=== PATIENT | female | born 1955 | race Caucasian/White ===

== ENCOUNTER 2016-12-28 14:16 | Inpatient (IN) | payer OTHER ==
[~2016-12-28] VITALS: Ht 154.9 cm; Wt 63.6 kg
[~2016-12-28 14:16] MED LIST: ALLE10TA5 PO; ALPR.25 PO; CALCTAB80 PO; MULT-65 PO; OMEG5CAP PO; PROT40TA PO; RED600TA PO; ROBA750T3 PO; VITA10002 SL; VITA250T26 PO
[2016-12-28 14:18] VITALS: BP 153/80; PULSE 70; RESP 20; TEMP 97.4; O2SAT 96
[2016-12-28 18:31] VITALS: BP 167/77; PULSE 68; RESP 24; O2SAT 98
[2016-12-28] MEDS ORDERED: NORC5TAB PO (18:40)
[2016-12-28] MEDS ORDERED: ALPR.25 PO (18:40)
[2016-12-28] MEDS ORDERED: CEPH-460 PO (18:40)
[2016-12-28] MEDS ORDERED: CALC500T15 PO (18:40)
[2016-12-28] MEDS ORDERED: ZOFR4TAB PO (18:40)
[2016-12-28] MEDS ORDERED: PANT40TA3 PO (18:40)
[2016-12-28] MEDS ORDERED: MULT1TAB84 PO (18:41)
[2016-12-28] MEDS ORDERED: FISHCAP4 PO (18:41)
[2016-12-28] MEDS ORDERED: LORA10TA PO (18:42)
[2016-12-28] MEDS ORDERED: VITA10002 PO (18:42)
[2016-12-28] MEDS ORDERED: YL V100T PO (18:43)
[2016-12-28] MEDS ORDERED: REDCAP2 PO (18:43)
[2016-12-28] MEDS ORDERED: MELO7.5T4 PO (18:44)
[2016-12-28] MEDS ORDERED: EXCETAB PO (18:48)
--- NOTE | 2016-12-28 18:50 | PD ---
HPI Chief Complaint: GI Complaint Time Seen by Provider: 18:50 Travel History International Travel<30 days: No Contact w/Intl Traveler<30days: No Traveled to known affect area: No History of Present Illness HPI 61-year-old female presents to the emergency Department with complaint of right upper quadrant abdominal pain since Wednesday night. She reports having heartburn and stomach pain with vomiting on Wednesday. Was seen in the ER on Wednesday night and an ultrasound of the gallbladder was positive for gallstones. She followed up with her primary care provider today, Dr. Ford, and was told to come to the emergency department for CT scan of the gallbladder per Dr. Miller. She denies fever, vomiting. Denies chest pain, shortness breath. Denies change in urine or stool. She has had decreased appetite but has been drinking clear liquids throughout the weekend. Allergies to Ultram. History of arthritis, anxiety. No other modifying factors or associated signs and symptoms. PFSH Past Medical History Arthritis: Yes Anxiety: Yes Heart Rhythm Problems: No Cardiac Catheterization: No Cardiovascular Problems: Yes High Cholesterol: Yes Congestive Heart Failure: No Diabetes: Yes (PREDIABETIC) Patient Takes Glucophage: No Diminished Hearing: No ?: Not Menopausal: Yes : 2 Para: 1 Past Surgical History Section: Yes (X 1) Coronary Artery Bypass Graft: No Other Surgery: Yes (carpel tunnel surgery-LEFT) Family History Family Myocardial Infarction: Yes (FATHER AGE 72 ) Social History Alcohol Use: Yes (OCCASSIONAL) Tobacco Use: No Substance Use: No Allergies-Medications (Allergen,Severity, Reaction): Coded Allergies: Codeine (Verified Allergy, Severe, Nausea/Vomiting, 12/28/16) Tramadol (Verified Allergy, Severe, Nausea/Vomiting, 12/28/16) Reported Meds & Prescriptions Reported Meds & Active Scripts Active Reported Excedrin Migraine (Lnzjmak-Dlehhnggomlug-Veznslwq) 250-250-65 Mg Tab 2 Tab PO DAILY PRN Meloxicam 7.5 Mg Tab 7.5 Mg PO BID PRN Vitamin B-12 (Cyanocobalamin) 1,000 Mcg Tab 1,000 Mcg PO DAILY Loratadine 10 Mg Tab 10 Mg PO DAILY Fish Oil + D3 (Fish Oil-Cholecalciferol) 1,200-1,000 Mg-Unit Cap 1 Cap PO DAILY Multivitamin Adults (Multiple Vitamins W/ Minerals) 1 Tab 1 Tab PO DAILY Calcium 500/D (Calcium Carbonate-Vitamin D) 500-200 Mg-Unit Tab 1 Tab PO DAILY Xanax (Alprazolam) 0.25 Mg Tab 0.25 Mg PO DAILY PRN Pantoprazole (Pantoprazole Sodium) 40 Mg Tab 40 Mg PO DAILY Zofran (Ondansetron HCl) 4 Mg Tab 4 Mg PO TID PRN Keflex (Cephalexin) 500 Mg Cap 500 Mg PO QID Lynx (Hydrocodone-Acetaminophen) 5-325 mg Tab 1 Tab PO Q6H PRN Review of Systems Except as stated in HPI: all other systems reviewed are Neg Physical Exam Narrative GENERAL: Well-nourished, well-developed female patient, in no acute distress; afebrile; nontoxic appearing SKIN: Warm and dry. HEAD: Atraumatic. Normocephalic. EYES: Pupils equal and round. No scleral icterus. No injection or drainage. ENT: Mucosa pink and moist. Airway patent. NECK: Trachea midline. CARDIOVASCULAR: Regular rate and rhythm. No murmur appreciated. RESPIRATORY: No accessory muscle use. Clear to auscultation. Breath sounds equal bilaterally. GASTROINTESTINAL: Abdomen soft, tenderness on palpation to right upper quadrant , nondistended. Hepatic and splenic margins not palpable. Bowel sounds are active 4 quadrants. Nonrigid. No rebound tenderness. No guarding. MUSCULOSKELETAL: No obvious deformities. No clubbing. No cyanosis. No edema. NEUROLOGICAL: Awake and alert. Oriented 3. No obvious cranial nerve deficits. Motor grossly within normal limits. Normal speech. PSYCHIATRIC: Appropriate mood and affect; insight and judgment normal. Data Data Last Documented VS Vital Signs Date Time Temp Pulse Resp B/P Pulse Ox O2 Delivery O2 Flow Rate FiO2 12/28/16 18:31 68 24 167/77 98 Room Air 12/28/16 14:18 97.4 Orders Complete Blood Count With Diff (12/28/16 18:55) Comprehensive Metabolic Panel (12/28/16 18:55) Lipase (12/28/16 18:55) Prothrombin Time / Inr (Pt) (12/28/16 18:55) Act Partial Throm Time (Ptt) (12/28/16 18:55) Urinalysis - C+S If Indicated (12/28/16 18:55) Ct Abd/Pel W Iv Contrast(Rout) (12/28/16 18:55) Sodium Chlor 0.9% 1000 Ml Inj (Ns 1000 M (12/28/16 18:55) Sodium Chloride 0.9% Flush (Ns Flush) (12/28/16 19:00) Iohexol 350 Inj (Omnipaque 350 Inj) (12/28/16 20:10) Morphine Inj (Morphine Inj) (12/28/16 20:45) Ondansetron Inj (Zofran Inj) (12/28/16 20:45) Consult General Surgery (12/28/16 ) Labs Laboratory Tests Test 12/28/16 12/28/16 18:50 19:52 White Blood Count 4.7 TH/MM3 Red Blood Count 3.79 MIL/MM3 Hemoglobin 11.4 GM/DL Hematocrit 33.6 % Mean Corpuscular Volume 88.7 FL Mean Corpuscular Hemoglobin 30.0 PG Mean Corpuscular Hemoglobin 33.8 % Concent Red Cell Distribution Width 12.5 % Platelet Count 176 TH/MM3 Mean Platelet Volume 9.8 FL Neutrophils (%) (Auto) 74.6 % Lymphocytes (%) (Auto) 15.1 % Monocytes (%) (Auto) 6.7 % Eosinophils (%) (Auto) 3.0 % Basophils (%) (Auto) 0.6 % Neutrophils # (Auto) 3.5 TH/MM3 Lymphocytes # (Auto) 0.7 TH/MM3 Monocytes # (Auto) 0.3 TH/MM3 Eosinophils # (Auto) 0.1 TH/MM3 Basophils # (Auto) 0.0 TH/MM3 CBC Comment DIFF FINAL Differential Comment Prothrombin Time 10.1 SEC Prothromb Time International 0.9 RATIO Ratio Activated Partial 27.8 SEC Thromboplast Time Sodium Level 142 MEQ/L Potassium Level 3.6 MEQ/L Chloride Level 107 MEQ/L Carbon Dioxide Level 27.5 MEQ/L Anion Gap 8 MEQ/L Blood Urea Nitrogen 11 MG/DL Creatinine 0.66 MG/DL Estimat Glomerular Filtration 91 ML/MIN Rate Random Glucose 88 MG/DL Calcium Level 8.7 MG/DL Total Bilirubin 0.4 MG/DL Aspartate Amino Transf 39 U/L (AST/SGOT) Alanine Aminotransferase 147 U/L (ALT/SGPT) Alkaline Phosphatase 99 U/L Total Protein 6.2 GM/DL Albumin 2.9 GM/DL Lipase 523 U/L Urine Color LIGHT-YELLOW Urine Turbidity CLEAR Urine pH 6.0 Urine Specific [place] 1.009 Urine Protein NEG mg/dL Urine Glucose (UA) NEG mg/dL Urine Ketones 10 mg/dL Urine Occult Blood NEG Urine Nitrite NEG Urine Bilirubin NEG Urine Urobilinogen LESS THAN 2.0 MG/DL Urine Leukocyte Esterase NEG Urine RBC LESS THAN 1 /hpf Urine WBC 1 /hpf Urine Squamous Epithelial <1 /hpf Cells Urine Mucus FEW /lpf Microscopic Urinalysis Comment CULT NOT INDICATED MDM Medical Decision Making Medical Screen Exam Complete: Yes Emergency Medical Condition: Yes Medical Record Reviewed: Yes Differential Diagnosis Cholelithiasis, choledocholithiasis, cholecystitis Narrative Course 61-year-old female sent by primary care provider, Dr. Ford, for CT scan of gallbladder secondary to request from Dr. Miller. Patient placed and cardiopulmonary monitor. IV site obtained. Labs ordered. Urinalysis ordered. Normal saline bolus ordered. Morphine ordered. CT abdomen/pelvis ordered. 1947: CBC unremarkable. Coags unremarkable. BMP unremarkable. AST 39. ALT 147. Lipase 523. 9: CT abdomen/pelvis concludes: Last 24 hours Impressions Abdomen/Pelvis CT 12/28/161854 Signed Impressions: Service Date/Time: Wednesday, December 28, 2016 19:57 - CONCLUSION: 1. CT findings typical of acute cholecystitis. Sludge and stones are seen in the gallbladder lumen. No biliary obstruction. 2. Mass posteriorly within the pelvic cavity that believe is most likely a uterine fibroid. Ultrasound surveillance suggested. Michel Andres MD 2142: Dr. Redding, [facility], report given and patient will be admitted. Consult entered for Dr. Miller, Gen. surgery. Physician Communication Physician Communication Dr. Cantrell, Gen. surgery Dr. Redding, [facility] Diagnosis Primary Impression: Pancreatitis Qualified Code: K85.90 - Acute pancreatitis, unspecified complication status, unspecified pancreatitis type Additional Impression: Acute cholecystitis Admitting Information Admitting Physician Requests: Admit Vida Lai Dec 28, 2016 18:50
[2016-12-28] MEDS ORDERED: SODIUM CHLOR 0.9% 1000 ML INJ 1,000 ML IV SCH (18:55)
[2016-12-28] MEDS ORDERED: SODIUM CHLORIDE 0.9% FLUSH 5 ML FLUSH IVF PRN (19:00)
[2016-12-28 19:20] LABS: AUTOMATED NEUTROPHIL # 3.5 TH/MM3 (1.8-7.7); BASOPHIL % 0.6 % (0.0-2.0); EOSINOPHIL # 0.1 TH/MM3 (0-0.4); HEMATOCRIT 33.6 % (35.0-46.0); HEMO FLAGS DIFF FINAL; LYMPH % 15.1 % (9.0-44.0); LYMPHOCYTE # 0.7 TH/MM3 (1.0-4.8); MEAN CELL VOLUME 88.7 FL (80.0-100.0); MEAN CORPUSCULAR HGB CONC 33.8 % (32.0-36.0); MONO % 6.7 % (0.0-8.0); NEUT % 74.6 % (16.0-70.0); PLATELET COUNT 176 TH/MM3 (150-450); RED BLOOD COUNT 3.79 MIL/MM3 (4.00-5.30); RED CELL DISTRIBUTION WIDTH 12.5 % (11.6-17.2); WHITE BLOOD COUNT 4.7 TH/MM3 (4.0-11.0)
[2016-12-28 19:31] LABS: APTT (PATIENT) 27.8 SEC (24.3-30.1); INTERNATIONAL NORMALIZED RATIO 0.9 RATIO; PROTHROMBIN TIME - PATIENT 10.1 SEC (9.8-11.6)
[2016-12-28 19:41] LABS: ANION GAP 8 MEQ/L (5-15); AST (GOT) 39 U/L (15-37); BICARBONATE 27.5 MEQ/L (21.0-32.0); BLOOD UREA NITROGEN 11 MG/DL (7-18); CHLORIDE 107 MEQ/L (98-107); GLOMERULAR FILTRATION RATE 91 ML/MIN (>89); POTASSIUM 3.6 MEQ/L (3.5-5.1); SODIUM (NA) 142 MEQ/L (136-145)
[2016-12-28 19:45] LABS: ALKALINE PHOSPHATASE 99 U/L (45-117); ALT (GPT) 147 U/L (10-53); TOTAL BILIRUBIN ADULT 0.4 MG/DL (0.2-1.0)
[2016-12-28] MEDS ORDERED: IOHEXOL 350 MG/ML 10 ML VIAL (for RAD DIAG) IV ONE (20:10)
[2016-12-28 20:22] LABS: BLOOD, URINE NEG (NEG); COMMENT (UR) CULT NOT INDICATED; CULTURE IF INDICATED CULT NOT INDICATED; GLUCOSE,URINE NEG (NEG); KETONE, URINE 10 mg/dL (NEG); MUCUS URINE FEW /lpf (OCC); NITRITE,URINE NEG (NEG); SQUAMOUS EPITHELIAL CELL URINE <1 /hpf (0-5); URINE COLOR LIGHT-YELLOW (YELLW/STRAW)
--- NOTE | 2016-12-28 20:35 | RADRPT ---
EXAM DATE/TIME: 12/28/2016 19:57 [place] COMPARISON: No previous studies available for comparison. INDICATIONS : Right lower abdomen pain today. IV CONTRAST: 96 cc Omnipaque 350 (iohexol) IV ORAL CONTRAST: No oral contrast ingested. RADIATION DOSE: 9.96 CTDIvol (mGy) MEDICAL HISTORY : Cardiovascular disease. SURGICAL HISTORY : None. ENCOUNTER: Initial ACUITY: 1 day PAIN SCALE: 7/10 LOCATION: Right lower quadrant TECHNIQUE: Volumetric scanning of the abdomen and pelvis was performed. Using automated exposure control and ad justment of the mA and/or kV according to patient size, radiation dose was kept as low as reasonably achievable to obtain optimal diagnostic quality images. FINDINGS: There is gallbladder wall thickening and pericholecystic fluid. Sludge and small to medium stones are seen in the lumen. No duct stone or ductal dilatation. The liver is within normal limits. Spleen, pancreas, adrenal glands and kidneys are normal. No obstruction or acute inflammatory changes are seen of the gastrointestinal tract. Trace free fluid noted. There is a 4.7 cm solid appearing mass in the posterior aspect of the pelvic cavity which I believe i s a subserosal uterine fibroid. Trace atelectasis seen of both lung bases. Visualized osseous structures are within normal limits. CONCLUSION: 1. CT findings typical of acute cholecystitis. Sludge and stones are seen in the gallbladder lumen. N o biliary obstruction. 2. Mass posteriorly within the pelvic cavity that believe is most likely a uterine fibroid. Ultrasoun d surveillance suggested. Michel Andres MD on December 28, 2016 at 20:30 Board Certified Radiologist. This report was verified electronically.
[2016-12-28] MEDS ORDERED: MORPHINE SULFATE 4 MG/ML INJ IV PUSH ONE (20:45)
[2016-12-28] MEDS ORDERED: ONDANSETRON HCL 4 MG/2 ML VIAL IV PUSH ONE (20:45)
--- NOTE | 2016-12-28 22:08 | HHI.HP ---
HPI Service [facility] Hospitalists Primary Care Physician Bay Ford MD Admission Diagnosis cholecystitis, pancreatitis. Chief Complaint: Abd pain, nausea, sent by surgeon for CT scan Travel History International Travel<30 Days: No Contact w/Intl Traveler <30 Da: No Traveled to Known Affected Are: No History of Present Illness 61-year-old female with know gallstones presents to the emergency Department with complaint of right upper quadrant abdominal pain since Wednesday night. She reports having heartburn and stomach pain with vomiting on Wednesday. Was seen in [facility] ER on Wednesday night and an ultrasound of the gallbladder was positive for gallstones. Lab work was relatively unremarkable at the time. She followed up with her primary care provider today, Dr. Ford, and was told to come to the emergency department for CT scan of the gallbladder after her PCP discussed case with surgeon, Dr. Miller. She denies fever, vomiting over last 3 days, but had some vomiting and low grade fever when symptoms first started last week. Denies chest pain, shortness breath. Denies change in urine or stool. She has had decreased appetite but has been drinking clear liquids throughout the weekend. History of arthritis, anxiety. It is noted that she started Mobic for her osteoA in early Dec, but stopped taking this med when her current GI symptoms started. ER eval revealed mildly elevated lipase and transaminases as well as findings c/ w acute cholecystitis on CT scan. Dr Miller requested admission to medical service with surgery consult. Review of Systems Constitutional: COMPLAINS OF: Fatigue, Change in appetite Eyes: DENIES: Blurred vision, Diplopia, Eye inflammation, Eye pain, Vision loss , Photosensitivity, Double Vision Ears, nose, mouth, throat: DENIES: Tinnitus, Hearing loss, Vertigo, Nasal discharge, Oral lesions, Throat pain, Hoarseness, Ear Pain, Running Nose, Epistaxis, Sinus Pain, Toothache, Odynophagia Respiratory: DENIES: Apneas, Cough, Snoring, Wheezing, Hemoptysis, Sputum production, Shortness of breath Cardiovascular: DENIES: Chest pain, Palpitations, Syncope, Dyspnea on Exertion , PND, Lower Extremity Edema, Orthopnea, Claudication Gastrointestinal: COMPLAINS OF: Abdominal pain, GERD, Nausea, Vomiting Musculoskeletal: COMPLAINS OF: Joint pain Integumentary: DENIES: Abnormal pigmentation, Pruritus, Rash, Nail changes, Breast masses, Breast skin changes, Nipple discharge Immunologic/allergic: DENIES: Eczema, Urticaria Neurologic: DENIES: Abnormal gait, Headache, Localized weakness, Paresthesias, Seizures, Speech Problems, Tremor, Poor Balance Psychiatric: COMPLAINS OF: Anxiety, Depression Past Family Social History Past Medical History Anxiety Cholelithiasis Depression GERD DDD Migraine OsteoA B12 def Past Surgical History c/s Foot surgery Carpal tunnel release Reported Medications Excedrin Migraine (Ucjzdhp-Ozdzixujplxxs-Hgaeirpl) 250-250-65 Mg Tab 2 Tab PO DAILY PRN Meloxicam 7.5 Mg Tab 7.5 Mg PO BID PRN-- none in last week Vitamin B-12 (Cyanocobalamin) 1,000 Mcg Tab 1,000 Mcg PO DAILY Loratadine 10 Mg Tab 10 Mg PO DAILY Fish Oil + D3 (Fish Oil-Cholecalciferol) 1,200-1,000 Mg-Unit Cap 1 Cap PO DAILY Multivitamin Adults (Multiple Vitamins W/ Minerals) 1 Tab 1 Tab PO DAILY Calcium 500/D (Calcium Carbonate-Vitamin D) 500-200 Mg-Unit Tab 1 Tab PO DAILY Xanax (Alprazolam) 0.25 Mg Tab 0.25 Mg PO DAILY PRN Pantoprazole (Pantoprazole Sodium) 40 Mg Tab 40 Mg PO DAILY Zofran (Ondansetron HCl) 4 Mg Tab 4 Mg PO TID PRN Keflex (Cephalexin) 500 Mg Cap 500 Mg PO QID [place] (Hydrocodone-Acetaminophen) 5-325 mg Tab 1 Tab PO Q6H PRN Allergies: Coded Allergies: Codeine (Verified Allergy, Severe, Nausea/Vomiting, 12/28/16) Tramadol (Verified Allergy, Severe, Nausea/Vomiting, 12/28/16) Family History Father - AMI Brother- HTN Social History No tobacco Occasional beer, but no regular EtOH use 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 a/ o. SKIN: No rashes, ecchymoses or lesions. Cool and dry. HEAD: Atraumatic. Normocephalic. No temporal or scalp tenderness. EYES: Pupils equal round and reactive. Extraocular motions intact. No scleral icterus. No injection or drainage. ENT: Nose without bleeding, purulent drainage or septal hematoma. Airway patent. NECK: Trachea midline. No JVD or lymphadenopathy. Supple, nontender, no meningeal signs. CARDIOVASCULAR: Regular rate and rhythm without murmurs, gallops, or rubs. RESPIRATORY: Clear to auscultation. Breath sounds equal bilaterally. No wheezes , rales, or rhonchi. GASTROINTESTINAL: Abdomen soft, nondistended. Mild TTP in RUQ and epigastrium. BS wnl. No hepato-splenomegaly, or palpable masses. +voluntary guarding, no rebound. MUSCULOSKELETAL: Extremities without clubbing, cyanosis, or edema. No joint tenderness, effusion, or edema noted. No calf tenderness. NEUROLOGICAL: Awake and alert. Cranial nerves II through XII intact. Motor and sensory grossly within normal limits. Five out of 5 muscle strength in all muscle groups. Normal speech. Laboratory Laboratory Tests Test 12/28/16 12/28/16 18:50 19:52 White Blood Count 4.7 Red Blood Count 3.79 Hemoglobin 11.4 Hematocrit 33.6 Mean Corpuscular Volume 88.7 Mean Corpuscular Hemoglobin 30.0 Mean Corpuscular Hemoglobin 33.8 Concent Red Cell Distribution Width 12.5 Platelet Count 176 Mean Platelet Volume 9.8 Neutrophils (%) (Auto) 74.6 Lymphocytes (%) (Auto) 15.1 Monocytes (%) (Auto) 6.7 Eosinophils (%) (Auto) 3.0 Basophils (%) (Auto) 0.6 Neutrophils # (Auto) 3.5 Lymphocytes # (Auto) 0.7 Monocytes # (Auto) 0.3 Eosinophils # (Auto) 0.1 Basophils # (Auto) 0.0 CBC Comment DIFF FINAL Differential Comment Prothrombin Time 10.1 Prothromb Time International 0.9 Ratio Activated Partial 27.8 Thromboplast Time Sodium Level 142 Potassium Level 3.6 Chloride Level 107 Carbon Dioxide Level 27.5 Anion Gap 8 Blood Urea Nitrogen 11 Creatinine 0.66 Estimat Glomerular Filtration 91 Rate Random Glucose 88 Calcium Level 8.7 Total Bilirubin 0.4 Aspartate Amino Transf 39 (AST/SGOT) Alanine Aminotransferase 147 (ALT/SGPT) Alkaline Phosphatase 99 Total Protein 6.2 Albumin 2.9 Lipase 523 Urine Color LIGHT-YELLOW Urine Turbidity CLEAR Urine pH 6.0 Urine Specific [place] 1.009 Urine Protein NEG Urine Glucose (UA) NEG Urine Ketones 10 Urine Occult Blood NEG Urine Nitrite NEG Urine Bilirubin NEG Urine Urobilinogen LESS THAN 2.0 Urine Leukocyte Esterase NEG Urine RBC LESS THAN 1 Urine WBC 1 Urine Squamous Epithelial <1 Cells Urine Mucus FEW Microscopic Urinalysis Comment CULT NOT INDICATED Result Diagram: 12/28/16184912/28/161849 Assessment and Plan Problem List: (1) Acute cholecystitis Status: Acute Plan: will control pain. Have GI see pt. NPO except meds. (2) Pancreatitis Status: Acute Plan: likely gallstone induced. Doesn't appear toxic. Follow clinically. (3) GERD (gastroesophageal reflux disease) Status: Chronic Plan: PPi (4) Anxiety Status: Chronic Plan: continue rx. Ativan prn. Code Status full Discussed Condition With Pt, her and ER healthcare provider. Physician Certification 2 Midnight Certification Type: Admission for Inpatient Services Order for Inpatient Services The services are ordered in accordance with Medicare regulations or non- Medicare payer requirements, as applicable. In the case of services not specified as inpatient-only, they are appropriately provided as inpatient services in accordance with the 2-midnight benchmark. Estimated LOS (days): 2 days is the estimated time the patient will need to remain in the hospital, assuming treatment plan goals are met and no additional complications. Post-Hospital Plan: Home Problem Qualifiers (1) Pancreatitis: Qualified Code: K85.90 - Acute pancreatitis, unspecified complication status, unspecified pancreatitis type Denys Redding PhD Dec 28, 2016 22:08
[2016-12-28] MEDS ORDERED: ONDANSETRON ODT 4 MG TAB PO PRN (22:15)
[2016-12-28 22:30] VITALS: BP 139/71; PULSE 70; RESP 14; O2SAT 100
[2016-12-28] MEDS: NS + KCL 20 MEQ INJ 1,000 ML IV SCH (22:30)
[2016-12-29 00:58] VITALS: BP 147/73; PULSE 65; RESP 20; TEMP 98; O2SAT 95
[2016-12-29] MEDS: LORazepam 2 MG/ML VIAL IV PUSH PRN ×2 (01:39→22:01)
[2016-12-29 04:27] VITALS: BP 115/69; PULSE 65; RESP 19; TEMP 97; O2SAT 96
[2016-12-29 06:05] LABS: AUTOMATED NEUTROPHIL # 2.7 TH/MM3 (1.8-7.7); BASOPHIL % 1.1 % (0.0-2.0); EOSINOPHIL # 0.2 TH/MM3 (0-0.4); EOSINOPHIL % 4.5 % (0.0-4.0); HEMATOCRIT 33.5 % (35.0-46.0); LYMPH % 19.2 % (9.0-44.0); LYMPHOCYTE # 0.8 TH/MM3 (1.0-4.8); MEAN CELL VOLUME 88.1 FL (80.0-100.0); MEAN CORPUSCULAR HEMOGLOBIN 30.2 PG (27.0-34.0); MEAN CORPUSCULAR HGB CONC 34.2 % (32.0-36.0); MONO % 7.8 % (0.0-8.0); NEUT % 67.4 % (16.0-70.0); PLATELET COUNT 176 TH/MM3 (150-450); RED CELL DISTRIBUTION WIDTH 12.5 % (11.6-17.2)
[2016-12-29 06:08] LABS: HEMO FLAGS AUTO DIFF
[2016-12-29 06:33] LABS: ALKALINE PHOSPHATASE 199 U/L (45-117); ALT (GPT) 125 U/L (10-53); ANION GAP 9 MEQ/L (5-15); AST (GOT) 35 U/L (15-37); BICARBONATE 27.8 MEQ/L (21.0-32.0); BLOOD UREA NITROGEN 7 MG/DL (7-18); CHLORIDE 107 MEQ/L (98-107); GLOMERULAR FILTRATION RATE 94 ML/MIN (>89); POTASSIUM 3.5 MEQ/L (3.5-5.1); SODIUM (NA) 144 MEQ/L (136-145); TOTAL BILIRUBIN ADULT 0.4 MG/DL (0.2-1.0)
[2016-12-29] MEDS: MORPHINE SULFATE 4 MG/ML INJ IV PRN (06:51)
[2016-12-29 06:59] LABS: PLATELET ESTIMATE SMEAR NORMAL (NORMAL); PLATELET MORPHOLOGY NORMAL (NORMAL); SCAN/DIFF AUTO DIFF CONFIRMED
[2016-12-29 08:00] VITALS: BP 136/77; PULSE 73; RESP 16; TEMP 98.1; O2SAT 94
[2016-12-29] MEDS: PANTOPRAZOLE SOD 40 MG DELAYED RELEASE TAB PO SCH (08:25)
[2016-12-29] MEDS: NS + KCL 20 MEQ INJ 1,000 ML IV SCH (08:25)
[2016-12-29] MEDS: CYANOCOBALAMIN 1,000 MCG TAB PO SCH (08:25)
[2016-12-29] MEDS: LORATADINE 10 MG TAB PO SCH (08:25)
[2016-12-29] MEDS: SODIUM CHLORIDE 0.9% FLUSH 5 ML FLUSH IV SCH ×2 (08:29→22:04)
[2016-12-29] MEDS ORDERED: SODIUM CHLORID 0.9% 500 ML IV SCH (09:30)
[2016-12-29] MEDS: LACTATED RINGER'S 1000 ML IV SCH (09:30)
--- NOTE | 2016-12-29 10:19 | HHI.PR ---
Subjective Remarks Pt reports that her pain is better controlled this morning She has been afebrile Denies any nausea or vomiting. Objective Vitals Vital Signs Date Time Temp Pulse Resp B/P Pulse Ox O2 Delivery O2 Flow Rate FiO2 12/29/16 08:00 98.1 73 16 136/77 94 12/29/16 04:27 97.0 65 19 115/69 96 12/29/16 00:58 98.0 65 20 147/73 95 12/28/16 22:30 70 14 139/71 100 Room Air 12/28/16 18:31 68 24 167/77 98 Room Air 12/28/16 14:18 97.4 70 20 153/80 96 Room Air 12/28/16 12/28/16 12/29/16 15:00 23:00 07:00 Intake Total 0 ml Balance 0 ml Intake Oral 0 ml # Voids 1 # Bowel Movements 0 Result Diagram: 12/29/16 0453 12/29/16 0453 Other Results Laboratory Tests Test 12/28/16 12/28/16 12/29/16 18:50 19:52 04:53 White Blood Count 4.7 TH/MM3 4.0 TH/MM3 Red Blood Count 3.79 MIL/MM3 3.80 MIL/MM3 Hemoglobin 11.4 GM/DL 11.5 GM/DL Hematocrit 33.6 % 33.5 % Mean Corpuscular Volume 88.7 FL 88.1 FL Mean Corpuscular Hemoglobin 30.0 PG 30.2 PG Mean Corpuscular Hemoglobin 33.8 % 34.2 % Concent Red Cell Distribution Width 12.5 % 12.5 % Platelet Count 176 TH/MM3 176 TH/MM3 Mean Platelet Volume 9.8 FL 9.7 FL Neutrophils (%) (Auto) 74.6 % 67.4 % Lymphocytes (%) (Auto) 15.1 % 19.2 % Monocytes (%) (Auto) 6.7 % 7.8 % Eosinophils (%) (Auto) 3.0 % 4.5 % Basophils (%) (Auto) 0.6 % 1.1 % Neutrophils # (Auto) 3.5 TH/MM3 2.7 TH/MM3 Lymphocytes # (Auto) 0.7 TH/MM3 0.8 TH/MM3 Monocytes # (Auto) 0.3 TH/MM3 0.3 TH/MM3 Eosinophils # (Auto) 0.1 TH/MM3 0.2 TH/MM3 Basophils # (Auto) 0.0 TH/MM3 0.0 TH/MM3 CBC Comment DIFF FINAL AUTO DIFF Differential Comment AUTO DIFF CONFIRMED Prothrombin Time 10.1 SEC Prothromb Time International 0.9 RATIO Ratio Activated Partial 27.8 SEC Thromboplast Time Sodium Level 142 MEQ/L 144 MEQ/L Potassium Level 3.6 MEQ/L 3.5 MEQ/L Chloride Level 107 MEQ/L 107 MEQ/L Carbon Dioxide Level 27.5 MEQ/L 27.8 MEQ/L Anion Gap 8 MEQ/L 9 MEQ/L Blood Urea Nitrogen 11 MG/DL 7 MG/DL Creatinine 0.66 MG/DL 0.64 MG/DL Estimat Glomerular Filtration 91 ML/MIN 94 ML/MIN Rate Random Glucose 88 MG/DL 81 MG/DL Calcium Level 8.7 MG/DL 8.4 MG/DL Total Bilirubin 0.4 MG/DL 0.4 MG/DL Aspartate Amino Transf 39 U/L 35 U/L (AST/SGOT) Alanine Aminotransferase 147 U/L 125 U/L (ALT/SGPT) Alkaline Phosphatase 99 U/L 199 U/L Total Protein 6.2 GM/DL 5.6 GM/DL Albumin 2.9 GM/DL 2.6 GM/DL Lipase 523 U/L 706 U/L Urine Color LIGHT-YELLOW Urine Turbidity CLEAR Urine pH 6.0 Urine Specific [place] 1.009 Urine Protein NEG mg/dL Urine Glucose (UA) NEG mg/dL Urine Ketones 10 mg/dL Urine Occult Blood NEG Urine Nitrite NEG Urine Bilirubin NEG Urine Urobilinogen LESS THAN 2.0 MG/DL Urine Leukocyte Esterase NEG Urine RBC LESS THAN 1 /hpf Urine WBC 1 /hpf Urine Squamous Epithelial <1 /hpf Cells Urine Mucus FEW /lpf Microscopic Urinalysis Comment CULT NOT INDICATED Platelet Estimate NORMAL Platelet Morphology Comment NORMAL Red Cell Morphology Comment NORMAL Imaging Last Impressions Abdomen/Pelvis CT 12/28/16 1967 Signed Impressions: Service Date/Time: Wednesday, December 28, 2016 19:57 - CONCLUSION: 1. CT findings typical of acute cholecystitis. Sludge and stones are seen in the gallbladder lumen. No biliary obstruction. 2. Mass posteriorly within the pelvic cavity that believe is most likely a uterine fibroid. Ultrasound surveillance suggested. Michel Andres MD Objective Remarks General: NAD, AAOx3 Chest: CTA Cardiac: Regular Abd: +BS, soft nondistended, RUQ tenderness Ext: No edema A/P Problem List: (1) Acute cholecystitis Status: Acute Plan: - Pt admitted with RUQ abd pain, nausea and vomiting that has been going on intermittently for the last 6 days. - CT Abd/pelvis in the ER noted findings typical of acute cholecystitis, sludge and stones are seen in the gallbladder lumen, but no biliary obstruction. Mass posteriorly within the pelvic cavity that believe is most likely a uterine fibroid. Ultrasound surveillance suggested. - Pain control PRN - Pt is NPO except meds. - Await General Surgery consultation - IVF - Pt has been afebrile, WBC count is WNL. (2) Elevated lipase Status: Acute Plan: - Pt with noted mildly elevated lipase at admission - No evidence of pancreatitis on imaging - May be secondary to above in relation to her gallbladder sludge and stone. No evidence of obstruction. (3) GERD (gastroesophageal reflux disease) Status: Chronic Plan: - PPI (4) Anxiety Status: Chronic Plan: - Continue rx. - Ativan prn. Assessment and Plan Patient examined. Assessment and plan formulated with Tosha Valencia PA-C. I agree with the above. acute cholecystitis. stones/sludge in gb. mild lipase elevation. gusman's sign on exam. npo. ivf. abx. await gen surg. Tosha Valencia Dec 29, 2016 10:18 Micah Lutz MD Dec 29, 2016 11:00
[2016-12-29] MEDS: metroNIDAZOLE 500 MG INJ 100 ML IV SCH ×2 (11:23→22:01)
[2016-12-29] MEDS: LEVOFLOXACIN 500 MG PREMIX INJ 100 ML IV SCH (11:23)
[2016-12-29 12:00] VITALS: BP 151/79; PULSE 71; RESP 16; TEMP 99; O2SAT 98
[2016-12-29 15:50] VITALS: BP 160/80; PULSE 79; RESP 18; TEMP 98; O2SAT 95
--- NOTE | 2016-12-29 17:06 | EKG ---
Date Performed: 12/29/2016 Time Performed: 10:30:48 PTAGE: 61 years EKG: Sinus rhythm BORDERLINE LEFT AXIS DEVIATION Since previous tracing, no significant change noted BORDERLINE ECG PREVIOUS TRACING : 09/16/2015 09.29 DOCTOR: Chris Morrison Interpretating Date/Time 12/29/2016 17:05:36
[2016-12-29] MEDS: ACETAMINOPHEN 325 MG TAB PO PRN (17:42)
--- NOTE | 2016-12-29 18:57 | MB ---
cc: NAOMI MARSH DATE OF CONSULTATION: 12/29/2016 DATE OF : 1955 REASON FOR CONSULTATION: Abdominal pain. HISTORY This is a 61-year-old female who presented to the emergency room with abdominal pain. The patient states the pain began six days prior, was located in the upper abdomen, associated with nausea and vomiting. Two days after initial presentation, the pain became severe. As a result she presented to the emergency room where ultrasound was performed. The patient was diagnosed with cholecystitis, placed on oral antibiotics, and sent home with instructions to follow up with her primary doctor. She tolerated her clear liquid diet over the weekend. On evaluation by her primary doctor she was noted to have tenderness throughout her lower abdomen as well as her right upper quadrant. As a result her physician contacted me and requested that the patient be seen in the emergency room for CT scan of her abdomen and pelvis. The patient states the pain is better now, though still present. Nausea is better. She did have fever the last three days prior. The patient denies chest pain, shortness of breath. No change in bowel habits. PAST MEDICAL HISTORY: Significant for osteoarthritis. Anxiety. PAST SURGICAL HISTORY: Significant for . Carpal tunnel release. MEDICATIONS AT HOME: 1. Keflex. 2. Flagyl. 3. Meloxicam. 4. Xanax. ALLERGIES: TRAMADOL causes upset stomach. SOCIAL HISTORY: She does not smoke. She drinks alcohol occasionally. FAMILY HISTORY: Noncontributory. REVIEW OF SYSTEMS: Significant for above. All other 10 point review is negative. PHYSICAL EXAMINATION: The patient is laying in bed in no acute distress. HEENT: Pupils are equal and reactive. Sclera icteric. Trachea midline. Respiratory rate clear. Cardiovascular: Regular. Gastrointestinal: Soft, nondistended. Mild tenderness in the lower abdomen. No peritoneal signs. Musculoskeletal: No deformities. Neurological: Nonfocal. LABORATORY DATA: Lipase 523, on 12/28 and today it has increased to 706. Bilirubin 0.4. IMAGING STUDIES: CT scan revealed inflammation around the gallbladder with sludge and stone within the gallbladder. ASSESSMENT: This is a patient with cholecystitis, cholelithiasis, and pancreatitis. The patient has been made n.p.o. Will continue antibiotics, Levaquin and Flagyl. As the patient's lipase started trending down, will start diet of full liquid, and as symptoms improve, will plan on removal of gallbladder as an outpatient in about six weeks. Will follow. MD MELINDA Alexandra/DEBRA /6:16 PM /6:49 PM
[2016-12-29 19:37] VITALS: BP 158/75; PULSE 74; RESP 18; TEMP 99.1; O2SAT 95
[2016-12-30 00:17] VITALS: BP 145/71; PULSE 72; RESP 18; TEMP 97.3; O2SAT 96
[2016-12-30] MEDS: MORPHINE SULFATE 4 MG/ML INJ IV PRN (02:43)
[2016-12-30 04:17] VITALS: BP 167/78; PULSE 71; RESP 19; TEMP 97.5; O2SAT 95
[2016-12-30] MEDS: metroNIDAZOLE 500 MG INJ 100 ML IV SCH ×3 (06:07→20:56)
[2016-12-30] MEDS: ACETAMINOPHEN 325 MG TAB PO PRN ×2 (06:12→11:40)
[2016-12-30] MEDS: cloNIDine HCL 0.1 MG TAB PO PRN (06:12)
[2016-12-30 07:17] LABS: INDIRECT BILIRUBIN 0.4 MG/DL (0.0-0.8); TOTAL BILIRUBIN ADULT 0.5 MG/DL (0.2-1.0)
[2016-12-30 07:53] VITALS: BP 141/64; PULSE 74; RESP 18; TEMP 97.1; O2SAT 96
[2016-12-30] MEDS: SODIUM CHLORIDE 0.9% FLUSH 5 ML FLUSH IV SCH ×2 (09:00→20:56)
[2016-12-30] MEDS: LACTATED RINGER'S 1000 ML IV SCH (09:30)
--- NOTE | 2016-12-30 09:55 | HHI.PR ---
Subjective Remarks hungry. pain better. Objective Vitals heart reg lung cta abd s/nt/nabs/gusman better ext no edema Vital Signs Date Time Temp Pulse Resp B/P Pulse Ox O2 Delivery O2 Flow Rate FiO2 12/30/16 07:53 97.1 74 18 141/64 96 12/30/16 04:17 97.5 71 19 167/78 95 12/30/16 00:17 97.3 72 18 145/71 96 12/29/16 19:37 99.1 74 18 158/75 95 12/29/16 18:42 18 12/29/16 15:50 98.0 79 18 160/80 95 12/29/16 12:00 99.0 71 16 151/79 98 12/29/16 12/29/16 12/30/16 15:00 23:00 07:00 Intake Total 875 ml 411 ml Balance 875 ml 411 ml Intake Oral 0 ml 0 ml IV Total 875 ml 411 ml # Voids 5 4 1 # Bowel Movements 0 0 0 Result Diagram: 12/29/16 0453 12/29/16 0453 Imaging Last Impressions Abdomen/Pelvis CT 12/28/16 2513 Signed Impressions: Service Date/Time: Wednesday, December 28, 2016 19:57 - CONCLUSION: 1. CT findings typical of acute cholecystitis. Sludge and stones are seen in the gallbladder lumen. No biliary obstruction. 2. Mass posteriorly within the pelvic cavity that believe is most likely a uterine fibroid. Ultrasound surveillance suggested. Michel Andres MD A/P Problem List: (1) Acute cholecystitis Status: Acute Plan: acute cholecystitis and mild pancreatitis. gallstone/slugde noted discussed with gen surg monitor lft/lipase cont ivf. iv abx. advance diet slowly if lft not trending down might need further eval of cbd to exclude sludge. (2) Elevated lipase Status: Acute Plan: see above (3) GERD (gastroesophageal reflux disease) Status: Chronic Plan: - PPI (4) Anxiety Status: Chronic Plan: - Continue rx. - Ativan prn. Micah Lutz MD Dec 30, 2016 09:55
[2016-12-30] MEDS ORDERED: PNEUMOCOCCAL POLYVALENT INJ 25 MCG/0.5 ML SYR IM ONE (10:00)
[2016-12-30] MEDS: LORATADINE 10 MG TAB PO SCH (10:09)
[2016-12-30] MEDS: CYANOCOBALAMIN 1,000 MCG TAB PO SCH (10:09)
[2016-12-30] MEDS: PANTOPRAZOLE SOD 40 MG DELAYED RELEASE TAB PO SCH (10:09)
[2016-12-30] MEDS: LEVOFLOXACIN 500 MG PREMIX INJ 100 ML IV SCH (11:39)
[2016-12-30 12:00] VITALS: BP 139/71; PULSE 73; RESP 19; TEMP 97.5; O2SAT 95
[2016-12-30 15:48] VITALS: BP 143/70; PULSE 75; RESP 18; TEMP 98.8
--- NOTE | 2016-12-30 16:52 | RADRPT ---
EXAM DATE/TIME: 12/30/2016 15:57 [facility] COMPARISON: CT ABDOMEN & PELVIS W CONTRAST, December 28, 2016, 19:57. INDICATIONS : Obstruction. MEDICAL HISTORY : Hypercholesterolemia. Cardiovascular disease Gastroesophageal reflux disease. SURGICAL HISTORY : section. Carpal tunnel syndrome. ENCOUNTER: Subsequent ACUITY: 3 day PAIN SCORE: 3/10 LOCATION: Abdomen. TECHNIQUE: Multiplanar, multisequence magnetic resonance imaging of the abdomen was performed. High-resolution 3D dataset was utilized to reconstruct maximum-intensity projection (MIP) images. FINDINGS: INTRAHEPATIC BILE DUCTS: Within normal limits. No significant anatomical variant is present. EXTRAHEPATIC BILE DUCTS: The common bile duct measures 7 mm. A 4 mm filling defect is seen within the inferior common bile sergio t best appreciated on the T2 source images. The stone is just short of the ampulla. GALLBLADDER: Multiple stones are seen layering within the gallbladder. There is gallbladder wall thickening and a small amount of pericholecystic fluid. LIVER: Normal size and signal intensity. No concerning liver lesion is identified on this non-contrast exam. PANCREAS: The main pancreatic duct is normal in size. There is no significant anatomical variant. Signal inte nsity is within normal limits. No mass is visualized on this non-contrast exam. OTHER: The remaining visualized structures demonstrate no acute abnormality on this non-contrast exam. CONCLUSION: 1. 4 mm common bile duct stone with mild prominence of the common bile duct measuring 7 mm in diamete r. This is just out of the range of normal in terms of size for a patient of this age. 2. Acute cholecystitis. Sam Esparza Jr., MD on December 30, 2016 at 16:36 Board Certified Radiologist. This report was verified electronically.
[2016-12-30 19:52] VITALS: BP 143/67; PULSE 73; RESP 16; TEMP 97.6; O2SAT 95
[2016-12-30] MEDS: LORazepam 2 MG/ML VIAL IV PUSH PRN (22:17)
[2016-12-31 00:26] VITALS: BP 114/58; PULSE 84; RESP 19; TEMP 97.6; O2SAT 95
[2016-12-31] MEDS: metroNIDAZOLE 500 MG INJ 100 ML IV SCH ×3 (03:59→21:16)
[2016-12-31 04:21] VITALS: BP 163/65; PULSE 73; RESP 18; TEMP 97.4; O2SAT 96
[2016-12-31 07:27] LABS: INDIRECT BILIRUBIN 0.3 MG/DL (0.0-0.8); TOTAL BILIRUBIN ADULT 0.4 MG/DL (0.2-1.0)
[2016-12-31 08:00] VITALS: BP 175/72; PULSE 77; RESP 18; TEMP 98; O2SAT 95
[2016-12-31] MEDS: CYANOCOBALAMIN 1,000 MCG TAB PO SCH (09:14)
[2016-12-31] MEDS: LORATADINE 10 MG TAB PO SCH (09:14)
[2016-12-31] MEDS: PANTOPRAZOLE SOD 40 MG DELAYED RELEASE TAB PO SCH (09:14)
[2016-12-31] MEDS: SODIUM CHLORIDE 0.9% FLUSH 5 ML FLUSH IV SCH ×2 (09:16→21:17)
[2016-12-31] MEDS: MORPHINE SULFATE 4 MG/ML INJ IV PRN ×3 (09:17→19:43)
[2016-12-31] MEDS: cloNIDine HCL 0.1 MG TAB PO PRN (09:18)
[2016-12-31] MEDS: LACTATED RINGER'S 1000 ML IV SCH (09:30)
--- NOTE | 2016-12-31 11:08 | HHI.PR ---
Subjective Remarks feels better. Objective Vitals heart reg lung cta abd s/nt ext no edema Vital Signs Date Time Temp Pulse Resp B/P Pulse Ox O2 Delivery O2 Flow Rate FiO2 12/31/16 08:00 98.0 77 18 175/72 95 12/31/16 07:19 Room Air 12/31/16 04:21 97.4 73 18 163/65 96 12/31/16 00:26 97.6 84 19 114/58 95 12/30/16 19:52 97.6 73 16 143/67 95 12/30/16 15:48 98.8 75 18 143/70 12/30/16 12:00 97.5 73 19 139/71 95 12/30/16 12/30/16 12/31/16 15:00 23:00 07:00 Intake Total 1654 ml 346 ml 695 ml Balance 1654 ml 346 ml 695 ml Intake Oral 720 ml 240 ml 480 ml IV Total 934 ml 106 ml 215 ml # Voids 6 4 2 # Bowel Movements 0 0 1 Result Diagram: 12/29/16 0453 12/29/16 0453 Imaging Last Impressions Abdomen/Pelvis CT 12/28/16 4495 Signed Impressions: Service Date/Time: Wednesday, December 28, 2016 19:57 - CONCLUSION: 1. CT findings typical of acute cholecystitis. Sludge and stones are seen in the gallbladder lumen. No biliary obstruction. 2. Mass posteriorly within the pelvic cavity that believe is most likely a uterine fibroid. Ultrasound surveillance suggested. Michel Andres MD A/P Problem List: (1) Acute cholecystitis Status: Acute Plan: acute cholecystitis and mild pancreatitis. gallstone/slugde noted choledocholithiasis discussed with gen surg. no lap maxim until 6 weeks cont iv abx on clears lft mild trend down today. lipase elevated 4mm stone in cbc...GI consulted to decide if needs ercp. long discussion with pt/. (2) Elevated lipase Status: Acute Plan: see above (3) GERD (gastroesophageal reflux disease) Status: Chronic Plan: - PPI (4) Anxiety Status: Chronic Plan: - Continue rx. - Ativan prn. Micah Lutz MD Dec 31, 2016 11:08
[2016-12-31 12:00] VITALS: BP 102/58; PULSE 64; RESP 18; TEMP 96.9; O2SAT 95
[2016-12-31] MEDS: LEVOFLOXACIN 500 MG PREMIX INJ 100 ML IV SCH (12:08)
--- NOTE | 2016-12-31 12:20 | PD.CONS ---
HPI History of Present Illness This is a 61 year old female patient who came to the emergency room for evaluation of abdominal pain. She reports that her symptoms began last Wednesday and she describes this pain as a severe ache in her epigastric area that radiates to the left upper quadrant and right upper quadrant and around to her back. She has associated nausea, vomiting, and bloating. The pain awoke her around 3 AM Wednesday. She reports that she went to work anyway but felt ill all day. She reports that she continued to feel bad on and Wednesday. Her symptoms are aggravated by po intake and therefore she has not been eating much. Wednesday she reports that the pain became suddenly worse and she also had a low-grade fever and chills with the nausea and vomiting. She went to the emergency room on patient site and was told that she had gallstones and instructed to follow up with her primary care physician. She reports that she then went to see her primary care doctor on Wednesday and he referred her to the ER for further evaluation.A Bdomen/Pelvis CT (12/28/16) revealed 1. CT findings typical of acute cholecystitis. Sludge and stones are seen in the gallbladder lumen. No biliary obstruction. 2. Mass posteriorly within the pelvic cavity that believe is most likely a uterine fibroid. Ultrasound surveillance suggested. Cholangiopancreatography MRI (12/30/16)----> 1. 4 mm common bile duct stone with mild prominence of the common bile duct measuring 7 mm in diameter. This is just out of the range of normal in terms of size for a patient of this age. 2. Acute cholecystitis. Her WBC is normal. Her LFTs are trending down. However her lipase has increased and is currently 1325. She has been afebrile since 12/30/16. COUNT INCLUDES THE [facility] Past Medical History Anxiety/depression Cholelithiasis GERD DDD Migraines Osteoarthritis B12 deficiency Past Surgical History Foot surgery Carpal tunnel release Coded Allergies: Codeine (Verified Allergy, Severe, Nausea/Vomiting, 12/28/16) Tramadol (Verified Allergy, Severe, Nausea/Vomiting, 12/28/16) Medications Allergies Coded Allergies Type Severity Reaction Last Updated Verified Codeine Allergy Severe Nausea/Vomiting 12/28/16 Yes Tramadol Allergy Severe Nausea/Vomiting 12/28/16 Yes Active Scripts Medications Dose Route/Sig Days Date Category Excedrin Migraine (Bgkiztq-Qjftjnfsweqfq-Zpabrkaf) 250-250-65 Mg Tab 2 Tab PO DAILY PRN 12/28/16 Reported Meloxicam 7.5 Mg Tab 7.5 Mg PO BID PRN 12/28/16 Reported Vitamin B-12 (Cyanocobalamin) 1,000 Mcg Tab 1,000 Mcg PO DAILY 12/28/16 Reported Loratadine 10 Mg Tab 10 Mg PO DAILY 12/28/16 Reported Fish Oil + D3 (Fish Oil-Cholecalciferol) 1,200-1,000 Mg-Unit Cap 1 Cap PO DAILY 12/28/16 Reported Multivitamin Adults (Multiple Vitamins W/ Minerals) 1 Tab 1 Tab PO DAILY 12/28/16 Reported Calcium 500/D (Calcium Carbonate-Vitamin D) 500-200 Mg-Unit Tab 1 Tab PO DAILY 12/28/16 Reported Xanax (Alprazolam) 0.25 Mg Tab 0.25 Mg PO DAILY PRN 12/28/16 Reported Pantoprazole (Pantoprazole Sodium) 40 Mg Tab 40 Mg PO DAILY 12/28/16 Reported Zofran (Ondansetron HCl) 4 Mg Tab 4 Mg PO TID PRN 12/28/16 Reported Keflex (Cephalexin) 500 Mg Cap 500 Mg PO QID 12/28/16 Reported [place] (Hydrocodone-Acetaminophen) 5-325 mg Tab 1 Tab PO Q6H PRN 12/28/16 Reported Family History Sister from pancreatic cancer reports that her mother had GI issues. Father from a [place] Social History No tobacco Occasional alcohol Review of Systems Constitutional: COMPLAINS OF: Fever, Weight loss (small amount, planned weight loss), Chills, Change in appetite Respiratory: DENIES: Cough, Shortness of breath Cardiovascular: DENIES: Chest pain Gastrointestinal: COMPLAINS OF: Abdominal pain, Nausea, Vomiting, Heartburn, DENIES: Black stools, Bloody stools, Constipation, Diarrhea, Hematemesis Musculoskeletal: COMPLAINS OF: Joint pain Integumentary: DENIES: Abnormal pigmentation Neurologic: DENIES: Headache Psychiatric: DENIES: Confusion GI Exam Vitals I&O Vital Signs Date Time Temp Pulse Resp B/P Pulse Ox O2 Delivery O2 Flow Rate FiO2 12/31/16 08:00 98.0 77 18 175/72 95 12/31/16 07:19 Room Air 12/31/16 04:21 97.4 73 18 163/65 96 12/31/16 00:26 97.6 84 19 114/58 95 12/30/16 19:52 97.6 73 16 143/67 95 12/30/16 15:48 98.8 75 18 143/70 I/O 12/30/16 12/30/16 12/30/16 12/31/16 12/31/16 12/31/16 07:00 15:00 23:00 07:00 15:00 23:00 Intake Total 411 ml 1654 ml 346 ml 695 ml Balance 411 ml 1654 ml 346 ml 695 ml Intake Oral 0 ml 720 ml 240 ml 480 ml IV Total 411 ml 934 ml 106 ml 215 ml # Voids 1 6 4 2 # Bowel Movements 0 0 0 1 Imaging Last Impressions Cholangiopancreatography MRI 12/30/16 0000 Signed Impressions: Service Date/Time: Friday, December 30, 2016 15:57 - CONCLUSION: 1. 4 mm common bile duct stone with mild prominence of the common bile duct measuring 7 mm in diameter. This is just out of the range of normal in terms of size for a patient of this age. 2. Acute cholecystitis. Sam Esparza Jr., MD Abdomen/Pelvis CT 12/28/16 1855 Signed Impressions: Service Date/Time: Wednesday, December 28, 2016 19:57 - CONCLUSION: 1. CT findings typical of acute cholecystitis. Sludge and stones are seen in the gallbladder lumen. No biliary obstruction. 2. Mass posteriorly within the pelvic cavity that believe is most likely a uterine fibroid. Ultrasound surveillance suggested. Michel Andres MD Laboratory Test 12/31/16 06:27 Total Bilirubin 0.4 MG/DL Direct Bilirubin 0.1 MG/DL Indirect Bilirubin 0.3 MG/DL Aspartate Amino Transf 13 U/L (AST/SGOT) Alanine Aminotransferase 81 U/L (ALT/SGPT) Alkaline Phosphatase 243 U/L Total Protein 6.2 GM/DL Albumin 3.0 GM/DL Lipase 1325 U/L Physical Examination HEENT: Normocephalic; atraumatic; no jaundice. CHEST: CTA. CARDIAC: RRR. ABDOMEN: Soft, nondistended, mild upper abdominal tenderness; no hepatosplenomegaly; bowel sounds are present in all four quadrants. EXTREMITIES: No clubbing, cyanosis, or edema. SKIN: Normal; no rash; no jaundice. PRIMING POWDER PREMIX BLENDER: No focal deficits; alert and oriented times three. Assessment and Plan Plan ASSESSMENT: - Gallstone pancreatitis. Abdomen/Pelvis CT (12/28/16)----> 1. CT findings typical of acute cholecystitis. Sludge and stones are seen in the gallbladder lumen. No biliary obstruction. 2. Mass posteriorly within the pelvic cavity that believe is most likely a uterine fibroid. Ultrasound surveillance suggested. MRCP (12/30/16)---> 1. 4 mm common bile duct stone with mild prominence of the common bile duct measuring 7 mm in diameter. This is just out of the range of normal in terms of size for a patient of this age. 2. Acute cholecystitis. Lipase 1325. Clear liquids. LFTs trending down. - Choledocholithiasis. Pt with 4mm cbd stone. Will plan for ERCP today. - Cholecystitis. GS following, plan for outpatient cholecystectomy. - Fever/Chills. Improved. Afebrile since 12/30. Dejuan Louis. PLAN: - Plan for ERCP with possible sphincterotomy, stent placement - Obtain consents - NPO - Cont. Abx. - LFT, Lipase in am - GS following - Supportive care - Further recommendations to follow based on results of above - PT seen and examined by Dr. Warner and myself and this note is written on his behalf Catherine Gutierrez Dec 31, 2016 12:20
[2016-12-31] MEDS ORDERED: IOHEXOL 350 MG/ML 100 ML BTL (for RAD DIAG) OTHER ONE (16:17)
--- NOTE | 2016-12-31 17:14 | RADRPT ---
EXAM DATE/TIME: 12/31/2016 16:33 [facility] COMPARISON: No previous studies available for comparison. FINDINGS: An ERCP was performed by the ordering physician. The images demonstrate a contrast in the extrahepatic biliary system. CONCLUSION: ERCP as above. Sam Estevez MD on December 31, 2016 at 17:12 Board Certified Radiologist. This report was verified electronically.
[2016-12-31] MEDS ORDERED: DO NOT ADM ANY ANTICOAGULANT DRUGS XX PRN (17:30)
--- NOTE | 2016-12-31 17:32 | MR ---
cc: KENYA COVARRUBIAS M.D., WESLEY M.D. DATE: 12/31/2016 PROCEDURE ERCP with sphincterotomy, stone removal by balloon and biopsy of the antrum. INDICATIONS 61-year-old lady with pancreatitis. MRCP showed common bile duct stone. PROCEDURE After informing the patient of procedure and complication consent was signed. The patient was placed on her left lateral decubitus adequate sedation was achieved by propofol scope was placed in the mouth advanced under video guidance to the second portion of the duodenum. The ampulla was identified and cannulation was achieved without difficulty common bile duct was opacified with dye was questionable filling defect in the distal common bile duct. Sphincterotomy was performed. Sweeping the duct with 11.5 mm balloon revealed one small stone. Next, the end of case occluded cholangiogram was negative for any filling defect. Next pancreatic duct was not seen. Next the scope drawn back to the stomach. Biopsy was done from antrum because of gastritis and the scope drawn back without immediate complication. FINDINGS 1. Esophagus limited exam normal 2. stomach, mild gastritis. Biopsy was done from the antrum. 3. Ampulla normal. 4. Common bile duct stone removed by balloon sweep. RECOMMENDATIONS 1. N.p.o. 2. The patient tolerated procedure well. 3. The liver function tests in the morning. 4. Await biopsy result. MD AINSLEY Tobin/thad /4:49 PM /5:14 PM
[2016-12-31 18:20] VITALS: BP 134/62; PULSE 56; RESP 9; TEMP 95.9; O2SAT 98
[2016-12-31 20:05] VITALS: BP 131/69; PULSE 68; RESP 15; TEMP 96.8; O2SAT 94
[2016-12-31] MEDS: LORazepam 2 MG/ML VIAL IV PUSH PRN (21:21)
[2016-12-31] MEDS ORDERED: PROPOFOL 200 MG/20 ML AMP IV ONE (22:24)
[2017-01-01] VITALS: BP 107/71; PULSE 75; RESP 16; TEMP 96.8; O2SAT 94
[2017-01-01] MEDS: metroNIDAZOLE 500 MG INJ 100 ML IV SCH ×3 (05:44→20:24)
[2017-01-01 07:02] LABS: INDIRECT BILIRUBIN 0.2 MG/DL (0.0-0.8); TOTAL BILIRUBIN ADULT 0.3 MG/DL (0.2-1.0)
[2017-01-01 08:00] VITALS: BP 126/74; PULSE 80; RESP 16; TEMP 97.9; O2SAT 95
[2017-01-01] MEDS: PANTOPRAZOLE SOD 40 MG DELAYED RELEASE TAB PO SCH (09:19)
[2017-01-01] MEDS: LORATADINE 10 MG TAB PO SCH (09:19)
[2017-01-01] MEDS: CYANOCOBALAMIN 1,000 MCG TAB PO SCH (09:19)
[2017-01-01] MEDS: MORPHINE SULFATE 4 MG/ML INJ IV PRN ×2 (09:21→16:08)
[2017-01-01] MEDS: SODIUM CHLORIDE 0.9% FLUSH 5 ML FLUSH IV SCH ×2 (09:27→20:24)
--- NOTE | 2017-01-01 11:13 | HHI.PR ---
Subjective Remarks Pt reports that last night she had increased pain in the abdomen but that has improved this morning. She has some mild discomfort but overall is feeling better Objective Vitals Vital Signs Date Time Temp Pulse Resp B/P Pulse Ox O2 Delivery O2 Flow Rate FiO2 01/01/17 08:00 97.9 80 16 126/74 95 01/01/17 00:00 96.8 75 16 107/71 94 12/31/16 20:05 96.8 68 15 131/69 94 12/31/16 18:20 95.9 56 9 134/62 98 12/31/16 18:02 Room Air 1.00 12/31/16 17:30 59 16 128/80 98 Nasal Cannula 2 12/31/16 17:17 63 16 128/80 7 Nasal Cannula 2 12/31/16 17:15 75 16 128/80 90 Room Air 12/31/16 16:56 98.2 73 16 138/81 95 Nasal Cannula 2 12/31/16 12:00 96.9 64 18 102/58 95 12/31/16 12/31/16 01/01/17 15:00 23:00 07:00 Intake Total 800 ml 700 ml Balance 800 ml 700 ml Intake Oral 600 ml IV Total 200 ml 200 ml Other 500 ml # Voids 4 2 2 # Bowel Movements 1 0 Result Diagram: 12/29/16 0453 12/29/16 0453 Other Results Laboratory Tests Test 12/31/16 01/01/17 06:27 05:50 Total Bilirubin 0.4 MG/DL 0.3 MG/DL Direct Bilirubin 0.1 MG/DL 0.1 MG/DL Indirect Bilirubin 0.3 MG/DL 0.2 MG/DL Aspartate Amino Transf 13 U/L 31 U/L (AST/SGOT) Alanine Aminotransferase 81 U/L 74 U/L (ALT/SGPT) Alkaline Phosphatase 243 U/L 241 U/L Total Protein 6.2 GM/DL 6.1 GM/DL Albumin 3.0 GM/DL 2.9 GM/DL Lipase 1325 U/L 1209 U/L Imaging Last Impressions GI Procedure 12/31/16 0000 Signed Impressions: Service Date/Time: December 16:33 - CONCLUSION: ERCP as above. Sam Estevez MD Cholangiopancreatography MRI 12/30/16 0000 Signed Impressions: Service Date/Time: Friday, December 30, 2016 15:57 - CONCLUSION: 1. 4 mm common bile duct stone with mild prominence of the common bile duct measuring 7 mm in diameter. This is just out of the range of normal in terms of size for a patient of this age. 2. Acute cholecystitis. Sam Esparza Jr., MD Abdomen/Pelvis CT 12/28/161854 Signed Impressions: Service Date/Time: Wednesday, December 28, 2016 19:57 - CONCLUSION: 1. CT findings typical of acute cholecystitis. Sludge and stones are seen in the gallbladder lumen. No biliary obstruction. 2. Mass posteriorly within the pelvic cavity that believe is most likely a uterine fibroid. Ultrasound surveillance suggested. Michel Andres MD Last Impressions Abdomen/Pelvis CT 12/28/161854 Signed Impressions: Service Date/Time: Wednesday, December 28, 2016 19:57 - CONCLUSION: 1. CT findings typical of acute cholecystitis. Sludge and stones are seen in the gallbladder lumen. No biliary obstruction. 2. Mass posteriorly within the pelvic cavity that believe is most likely a uterine fibroid. Ultrasound surveillance suggested. Michel Andres MD Objective Remarks General: NAD, AAOx3 Chest: CTA bilaterally Cardiac: Regular Abd: +BS, soft nondistended, minimal tenderness Ext: No edema A/P Problem List: (1) Acute cholecystitis Status: Acute Plan: - Pt admitted with acute cholecystitis and mild pancreatitis with noted gallstone/sludge and choledocholithiasis - Pt has been seen by GI and underwent ERCP with sphincterotomy with balloon sweep and stone removal on 12/31/[address] Warner. - The case was discussed between Dr. Lutz and Gen surgery, no lap maxim until 6 weeks - Cont IV Abx - Pt is NPO. - Diet progression per GI. - LFTs and lipase with minimal trend down today. - Repeat labs in AM (2) Elevated lipase Status: Acute Plan: - See above (3) GERD (gastroesophageal reflux disease) Status: Chronic Plan: - PPI (4) Anxiety Status: Chronic Plan: - Continue rx. - Ativan prn. Assessment and Plan Patient examined. Assessment and plan formulated with Tosha Valencia PA-C. I agree with the above. acute cholecystitis choledocolithiasis. s/p ercp balloon sweep of stone. sphincterotomy ivf and diet advance per GI. recheck labs in AM. Tosha Valencia Jan 01, 2017 11:12 Micah Lutz MD Jan 01, 2017 11:24
[2017-01-01 12:00] VITALS: BP 131/76; PULSE 76; RESP 16; TEMP 97.4; O2SAT 96
--- NOTE | 2017-01-01 12:12 | HHI.GIFU ---
Subjective Remarks She is resting comfortably in bed. She says she has no abdominal pain, no n/v. Objective Vitals I&O Vital Signs Date Time Temp Pulse Resp B/P Pulse Ox O2 Delivery O2 Flow Rate FiO2 01/01/17 08:00 97.9 80 16 126/74 95 01/01/17 00:00 96.8 75 16 107/71 94 12/31/16 20:05 96.8 68 15 131/69 94 12/31/16 18:20 95.9 56 9 134/62 98 12/31/16 18:02 Room Air 1.00 12/31/16 17:30 59 16 128/80 98 Nasal Cannula 2 12/31/16 17:17 63 16 128/80 7 Nasal Cannula 2 12/31/16 17:15 75 16 128/80 90 Room Air 12/31/16 16:56 98.2 73 16 138/81 95 Nasal Cannula 2 I/O 12/31/16 12/31/16 12/31/16 01/01/17 01/01/17 01/01/17 07:00 15:00 23:00 07:00 15:00 23:00 Intake Total 695 ml 800 ml 700 ml Balance 695 ml 800 ml 700 ml Intake Oral 480 ml 600 ml IV Total 215 ml 200 ml 200 ml Other 500 ml # Voids 2 4 2 2 # Bowel Movements 1 1 0 Laboratory Laboratory Tests Test 01/01/17 05:50 Total Bilirubin 0.3 Direct Bilirubin 0.1 Indirect Bilirubin 0.2 Aspartate Amino Transf 31 (AST/SGOT) Alanine Aminotransferase 74 (ALT/SGPT) Alkaline Phosphatase 241 Total Protein 6.1 Albumin 2.9 Lipase 1209 Imaging Last Impressions GI Procedure 12/31/16 0000 Signed Impressions: Service Date/Time: December 16:33 - CONCLUSION: ERCP as above. Sam Estevez MD Cholangiopancreatography MRI 12/30/16 0000 Signed Impressions: Service Date/Time: Friday, December 30, 2016 15:57 - CONCLUSION: 1. 4 mm common bile duct stone with mild prominence of the common bile duct measuring 7 mm in diameter. This is just out of the range of normal in terms of size for a patient of this age. 2. Acute cholecystitis. Sam Esparza Jr., MD Abdomen/Pelvis CT 12/28/16 2116 Signed Impressions: Service Date/Time: Wednesday, December 28, 2016 19:57 - CONCLUSION: 1. CT findings typical of acute cholecystitis. Sludge and stones are seen in the gallbladder lumen. No biliary obstruction. 2. Mass posteriorly within the pelvic cavity that believe is most likely a uterine fibroid. Ultrasound surveillance suggested. Michel Andres MD Physical Exam HEENT: normocephalic; atraumatic; no jaundice. CHEST: Chest is clear to auscultation and percussion. CARDIAC: RRR ABDOMEN: Soft, nondistended, nontender; no hepatosplenomegaly; bowel sounds are present in all four quadrants. EXTREMITIES: No clubbing, cyanosis, or edema. SKIN: Normal; no rash; no jaundice. PRODUCT LINE MANAGER: No focal deficits; alert and oriented times three. Assessment and Plan Plan ASSESSMENT: - Gallstone pancreatitis. Abdomen/Pelvis CT (12/28/16)----> 1. CT findings typical of acute cholecystitis. Sludge and stones are seen in the gallbladder lumen. No biliary obstruction. 2. Mass posteriorly within the pelvic cavity that believe is most likely a uterine fibroid. Ultrasound surveillance suggested. MRCP (12/30/16)---> 1. 4 mm common bile duct stone with mild prominence of the common bile duct measuring 7 mm in diameter. This is just out of the range of normal in terms of size for a patient of this age. 2. Acute cholecystitis. Lipase 1209. Clear liquids. LFTs trending down. - Choledocholithiasis. ERCP with sphincterotomy, stone removal, bx antrum yesterday. Found mild gastritis. - Cholecystitis. GS following, plan for outpatient cholecystectomy. - Fever/Chills. Improved. Afebrile since 12/30. Dejuan Louis. PLAN: - clear liquid diet - advance diet so long as lipase decreases - Cont. Abx. - LFT, Lipase in am - GS following - Supportive care - PT seen and examined by Dr. Warner and myself and this note is written on his behalf Catherine Gutierrez Jan 01, 2017 12:12
[2017-01-01] MEDS: LEVOFLOXACIN 500 MG PREMIX INJ 100 ML IV SCH (12:34)
[2017-01-01] MEDS: ALPRAZolam 0.25 MG TAB PO PRN (12:37)
[2017-01-01 16:00] VITALS: BP 126/64; PULSE 72; RESP 17; TEMP 96.9; O2SAT 97
[2017-01-01 20:00] VITALS: BP 138/69; PULSE 70; RESP 16; TEMP 97.5; O2SAT 95
[2017-01-01] MEDS: TEMAZEPAM 15 MG CAP PO PRN (20:23)
[2017-01-02] VITALS (7 sets, daily range): BP systolic 105–147; BP diastolic 56–81; PULSE 69–86; RESP 16–20; TEMP 96.7–98.8; O2SAT 93–96
[2017-01-02] MEDS: ALPRAZolam 0.25 MG TAB PO PRN ×2 (02:05→10:02)
[2017-01-02] MEDS: metroNIDAZOLE 500 MG INJ 100 ML IV SCH ×3 (05:27→21:32)
[2017-01-02 06:07] LABS: INDIRECT BILIRUBIN 0.2 MG/DL (0.0-0.8); TOTAL BILIRUBIN ADULT 0.3 MG/DL (0.2-1.0)
--- NOTE | 2017-01-02 09:51 | HHI.PR ---
Subjective Remarks jannie clears. some gas. wants to advance diet. no vomiting. wants to go home. Objective Vitals heart reg lung cta abd s/nt/bs ext no edema Vital Signs Date Time Temp Pulse Resp B/P Pulse Ox O2 Delivery O2 Flow Rate FiO2 01/02/17 08:00 96.8 69 16 124/57 95 01/02/17 00:00 97.2 70 20 109/56 95 01/01/17 20:00 97.5 70 16 138/69 95 01/01/17 20:00 97.5 70 16 138/69 95 01/01/17 16:00 96.9 72 17 126/64 97 01/01/17 12:00 97.4 76 16 131/76 96 01/01/17 01/01/17 01/02/17 15:00 23:00 07:00 Intake Total 480 ml 240 ml Output Total 750 ml Balance -270 ml 240 ml Intake Oral 480 ml 240 ml Output Urine Total 750 ml # Voids 6 2 # Bowel Movements 1 0 Result Diagram: 12/29/16 0453 12/29/16 0453 Imaging Last Impressions GI Procedure 12/31/16 0000 Signed Impressions: Service Date/Time: December 16:33 - CONCLUSION: ERCP as above. Sam Estevez MD Cholangiopancreatography MRI 12/30/16 0000 Signed Impressions: Service Date/Time: Friday, December 30, 2016 15:57 - CONCLUSION: 1. 4 mm common bile duct stone with mild prominence of the common bile duct measuring 7 mm in diameter. This is just out of the range of normal in terms of size for a patient of this age. 2. Acute cholecystitis. Sam Esparza Jr., MD Abdomen/Pelvis CT 12/28/161854 Signed Impressions: Service Date/Time: Wednesday, December 28, 2016 19:57 - CONCLUSION: 1. CT findings typical of acute cholecystitis. Sludge and stones are seen in the gallbladder lumen. No biliary obstruction. 2. Mass posteriorly within the pelvic cavity that believe is most likely a uterine fibroid. Ultrasound surveillance suggested. Michel Andres MD Last Impressions Abdomen/Pelvis CT 12/28/161854 Signed Impressions: Service Date/Time: Wednesday, December 28, 2016 19:57 - CONCLUSION: 1. CT findings typical of acute cholecystitis. Sludge and stones are seen in the gallbladder lumen. No biliary obstruction. 2. Mass posteriorly within the pelvic cavity that believe is most likely a uterine fibroid. Ultrasound surveillance suggested. Michel Andres MD A/P Problem List: (1) Acute cholecystitis Status: Acute Plan: - Pt admitted with acute cholecystitis and mild pancreatitis with noted gallstone/sludge and choledocholithiasis - Pt has been seen by GI and underwent ERCP with sphincterotomy with balloon sweep and stone removal on 12/31/[address] Warner. - The case was discussed between Dr. Lutz and Gen surgery, no lap maxim until 6 weeks cont abx. advance to full liquids. lft/lipase improving slowly. Pt begging for dc today. will decide with GI after trial of full liquids. (2) Elevated lipase Status: Acute Plan: - See above (3) GERD (gastroesophageal reflux disease) Status: Chronic Plan: - PPI (4) Anxiety Status: Chronic Plan: - Continue rx. - Ativan prn. Micah Lutz MD Jan 02, 2017 09:51
[2017-01-02] MEDS: CYANOCOBALAMIN 1,000 MCG TAB PO SCH (10:03)
[2017-01-02] MEDS: LORATADINE 10 MG TAB PO SCH (10:03)
[2017-01-02] MEDS: PANTOPRAZOLE SOD 40 MG DELAYED RELEASE TAB PO SCH (10:03)
[2017-01-02] MEDS: LEVOFLOXACIN 500 MG PREMIX INJ 100 ML IV SCH (10:04)
[2017-01-02] MEDS: SODIUM CHLORIDE 0.9% FLUSH 5 ML FLUSH IV SCH ×2 (10:05→21:32)
[2017-01-02] MEDS ORDERED: SIMETHICONE 125 MG CHEWABLE TAB PO ONE (11:00)
[2017-01-02] MEDS: SIMETHICONE 125 MG CHEWABLE TAB PO SCH ×2 (15:01→20:31)
--- NOTE | 2017-01-02 16:38 | HHI.GIFU ---
Subjective Remarks Resting in bed. States she is having some gas pain after eating, otherwise doing okay. No n/v. Objective Vitals I&O Vital Signs Date Time Temp Pulse Resp B/P Pulse Ox O2 Delivery O2 Flow Rate FiO2 01/02/17 12:00 96.7 73 17 138/81 96 01/02/17 10:14 93 21 01/02/17 08:00 96.8 69 16 124/57 95 01/02/17 00:00 97.2 70 20 109/56 95 01/01/17 20:00 97.5 70 16 138/69 95 01/01/17 20:00 97.5 70 16 138/69 95 I/O 01/01/17 01/01/17 01/01/17 01/02/17 01/02/17 01/02/17 07:00 15:00 23:00 07:00 15:00 23:00 Intake Total 480 ml 240 ml 200 ml Output Total 750 ml Balance -270 ml 240 ml 200 ml Intake Oral 480 ml 240 ml IV Total 200 ml Output Urine Total 750 ml # Voids 2 6 2 # Bowel Movements 1 0 Laboratory Laboratory Tests Test 01/02/17 04:20 Total Bilirubin 0.3 Direct Bilirubin 0.1 Indirect Bilirubin 0.2 Aspartate Amino Transf 25 (AST/SGOT) Alanine Aminotransferase 63 (ALT/SGPT) Alkaline Phosphatase 191 Total Protein 5.9 Albumin 3.0 Lipase 1112 Imaging Last Impressions GI Procedure 12/31/16 0000 Signed Impressions: Service Date/Time: December 16:33 - CONCLUSION: ERCP as above. Sam Estevez MD Cholangiopancreatography MRI 12/30/16 0000 Signed Impressions: Service Date/Time: Friday, December 30, 2016 15:57 - CONCLUSION: 1. 4 mm common bile duct stone with mild prominence of the common bile duct measuring 7 mm in diameter. This is just out of the range of normal in terms of size for a patient of this age. 2. Acute cholecystitis. Sam Esparza Jr., MD Abdomen/Pelvis CT 12/28/16 3246 Signed Impressions: Service Date/Time: Wednesday, December 28, 2016 19:57 - CONCLUSION: 1. CT findings typical of acute cholecystitis. Sludge and stones are seen in the gallbladder lumen. No biliary obstruction. 2. Mass posteriorly within the pelvic cavity that believe is most likely a uterine fibroid. Ultrasound surveillance suggested. Michel Andres MD Physical Exam HEENT: normocephalic; atraumatic; no jaundice. CHEST: Chest is clear to auscultation and percussion. CARDIAC: RRR ABDOMEN: Soft, nondistended, mild epigastric tenderness; no hepatosplenomegaly ; bowel sounds are present in all four quadrants. EXTREMITIES: No clubbing, cyanosis, or edema. SKIN: Normal; no rash; no jaundice. PRIMING MIXTURE CARRIER: No focal deficits; alert and oriented times three. Assessment and Plan Plan ASSESSMENT: - Gallstone pancreatitis. Abdomen/Pelvis CT (12/28/16)----> 1. CT findings typical of acute cholecystitis. Sludge and stones are seen in the gallbladder lumen. No biliary obstruction. 2. Mass posteriorly within the pelvic cavity that believe is most likely a uterine fibroid. Ultrasound surveillance suggested. MRCP (12/30/16)---> 1. 4 mm common bile duct stone with mild prominence of the common bile duct measuring 7 mm in diameter. This is just out of the range of normal in terms of size for a patient of this age. 2. Acute cholecystitis. Lipase slowly trending down, but is still 1112. Taking full liquids, but still having gas pain after eating this. She was started on Simethicone today. LFTs trending down. - Choledocholithiasis. ERCP with sphincterotomy, stone removal, bx antrum yesterday. Found mild gastritis. - Cholecystitis. GS following, plan for outpatient cholecystectomy. - Fever/Chills. Improved. Afebrile since 12/30. Dejuan Louis. PLAN: - Full liquids - Cont. PPI - Cont. Simethicone - Cont. Abx. - Lipase in am - Pt agreeable to stay overnight and recheck labs in am - If lipase trending down and she is tolerating diet, then would be okay to d/c home in am with outpatient FU in 1-2 weeks - PT seen and examined by Dr. Warner and myself and this note is written on his behalf Catherine Gutierrez Jan 02, 2017 16:38
[2017-01-02] MEDS: TEMAZEPAM 15 MG CAP PO PRN (21:31)
[2017-01-02] MEDS ORDERED: CHOLESTYRAMINE 4 GM PACKET PO PRN (21:45)
[2017-01-02] MEDS ORDERED: CHOLESTYRAMINE 4 GM PACKET PO ONE (22:00)
[2017-01-03] VITALS (7 sets, daily range): BP systolic 113–142; BP diastolic 55–75; PULSE 60–81; RESP 17–19; TEMP 96.4–97.9; O2SAT 95–98
[2017-01-03] MEDS: SIMETHICONE 125 MG CHEWABLE TAB PO SCH ×3 (06:26→20:38)
[2017-01-03] MEDS: ALPRAZolam 0.25 MG TAB PO PRN (06:26)
[2017-01-03] MEDS: MORPHINE SULFATE 4 MG/ML INJ IV PRN ×5 (06:27→20:37)
[2017-01-03] MEDS: metroNIDAZOLE 500 MG INJ 100 ML IV SCH ×3 (06:27→20:23)
[2017-01-03] MEDS: CYANOCOBALAMIN 1,000 MCG TAB PO SCH (09:53)
[2017-01-03] MEDS: LORATADINE 10 MG TAB PO SCH (09:54)
[2017-01-03] MEDS: SODIUM CHLORIDE 0.9% FLUSH 5 ML FLUSH IV SCH ×2 (09:54→21:00)
[2017-01-03] MEDS: PANTOPRAZOLE SOD 40 MG DELAYED RELEASE TAB PO SCH (09:54)
--- NOTE | 2017-01-03 11:05 | HHI.PR ---
Subjective Remarks Pt has some increase abdomen pain and diarrhea with food yesterday. Objective Vitals heart reg lung cta abd s/nt ext no edema Vital Signs Date Time Temp Pulse Resp B/P Pulse Ox O2 Delivery O2 Flow Rate FiO2 01/03/17 08:00 97.7 60 17 116/74 97 01/03/17 05:16 97.9 69 18 135/68 96 01/03/17 00:15 97.8 81 18 113/55 97 01/02/17 21:31 95 01/02/17 20:00 98.8 86 20 147/68 96 01/02/17 16:00 96.8 86 16 105/61 96 01/02/17 12:00 96.7 73 17 138/81 96 01/02/17 01/02/17 01/03/17 15:00 23:00 07:00 Intake Total 920 ml 240 ml Output Total 900 ml Balance 20 ml 240 ml Intake Oral 720 ml 240 ml IV Total 200 ml Output Urine Total 900 ml # Voids 4 4 1 # Bowel Movements 1 0 0 Imaging Last Impressions GI Procedure 12/31/16 0000 Signed Impressions: Service Date/Time: December 16:33 - CONCLUSION: ERCP as above. Sam Estevez MD Cholangiopancreatography MRI 12/30/16 0000 Signed Impressions: Service Date/Time: Friday, December 30, 2016 15:57 - CONCLUSION: 1. 4 mm common bile duct stone with mild prominence of the common bile duct measuring 7 mm in diameter. This is just out of the range of normal in terms of size for a patient of this age. 2. Acute cholecystitis. Sam Esparza Jr., MD Abdomen/Pelvis CT 12/28/161854 Signed Impressions: Service Date/Time: Wednesday, December 28, 2016 19:57 - CONCLUSION: 1. CT findings typical of acute cholecystitis. Sludge and stones are seen in the gallbladder lumen. No biliary obstruction. 2. Mass posteriorly within the pelvic cavity that believe is most likely a uterine fibroid. Ultrasound surveillance suggested. Michel Andres MD Last Impressions Abdomen/Pelvis CT 12/28/161854 Signed Impressions: Service Date/Time: Wednesday, December 28, 2016 19:57 - CONCLUSION: 1. CT findings typical of acute cholecystitis. Sludge and stones are seen in the gallbladder lumen. No biliary obstruction. 2. Mass posteriorly within the pelvic cavity that believe is most likely a uterine fibroid. Ultrasound surveillance suggested. Michel Anders MD A/P Problem List: (1) Acute cholecystitis Status: Acute Plan: - Pt admitted with acute cholecystitis and mild pancreatitis with noted gallstone/sludge and choledocholithiasis - Pt has been seen by GI and underwent ERCP with sphincterotomy with balloon sweep and stone removal on 12/31/[address] Warner. - The case was discussed between Dr. Lutz and Gen surgery, no lap maxim until 6 weeks cont abx. advanced to full liquids. lft/lipase improving slowly. Pt had some abdomen discomfort with full liquid yesterday. cont ivf and slow diet advancement. (2) Elevated lipase Status: Acute Plan: - See above (3) GERD (gastroesophageal reflux disease) Status: Chronic Plan: - PPI (4) Anxiety Status: Chronic Plan: - Continue rx. - Ativan claran. Micah Lutz MD Jan 03, 2017 11:05
[2017-01-03] MEDS: LEVOFLOXACIN 500 MG PREMIX INJ 100 ML IV SCH (12:21)
[2017-01-03] MEDS: SODIUM CHLORIDE 0.9% FLUSH 5 ML FLUSH IV PRN ×2 (12:45→16:57)
--- NOTE | 2017-01-03 15:15 | HHI.GIFU ---
Subjective Remarks 61 yo female resting in bed in no apparent distress. Continues to have abdominal pain after eating. Reports episode of diarrhea last night after eating. Objective Vitals I&O Vital Signs Date Time Temp Pulse Resp B/P Pulse Ox O2 Delivery O2 Flow Rate FiO2 01/03/17 12:21 Room Air 01/03/17 12:00 97.4 70 18 132/75 97 01/03/17 12:00 95 01/03/17 08:00 97.7 60 17 116/74 97 01/03/17 05:16 97.9 69 18 135/68 96 01/03/17 00:15 97.8 81 18 113/55 97 01/02/17 21:31 95 01/02/17 20:00 98.8 86 20 147/68 96 01/02/17 16:00 96.8 86 16 105/61 96 I/O 01/02/17 01/02/17 01/02/17 01/03/17 01/03/17 01/03/17 07:00 15:00 23:00 07:00 15:00 23:00 Intake Total 240 ml 920 ml 240 ml 547 ml Output Total 900 ml Balance 240 ml 20 ml 240 ml 547 ml Intake Oral 240 ml 720 ml 240 ml IV Total 200 ml 547 ml Output Urine Total 900 ml # Voids 2 4 4 1 # Bowel Movements 0 1 0 0 Laboratory Laboratory Tests Test 01/03/17 06:35 Lipase 1313 Imaging Last Impressions GI Procedure 12/31/16 0000 Signed Impressions: Service Date/Time: December 16:33 - CONCLUSION: ERCP as above. Sam Estevez MD Cholangiopancreatography MRI 12/30/16 0000 Signed Impressions: Service Date/Time: Friday, December 30, 2016 15:57 - CONCLUSION: 1. 4 mm common bile duct stone with mild prominence of the common bile duct measuring 7 mm in diameter. This is just out of the range of normal in terms of size for a patient of this age. 2. Acute cholecystitis. Sam Esparza Jr., MD Abdomen/Pelvis CT 12/28/16 1776 Signed Impressions: Service Date/Time: Wednesday, December 28, 2016 19:57 - CONCLUSION: 1. CT findings typical of acute cholecystitis. Sludge and stones are seen in the gallbladder lumen. No biliary obstruction. 2. Mass posteriorly within the pelvic cavity that believe is most likely a uterine fibroid. Ultrasound surveillance suggested. Michel Andres MD Physical Exam HEENT: PERRLA. Normocephalic; atraumatic; no jaundice. CHEST: CTA CARDIAC: RRR ABDOMEN: Soft, nondistended, mild epigastric tenderness; no hepatosplenomegaly ; bowel sounds x 4 quadrants. EXTREMITIES: No clubbing, cyanosis, or edema. SKIN: Normal; no rash; no jaundice. SALON MANAGER: No focal deficits; A&O x 3. Assessment and Plan Plan ASSESSMENT: - Gallstone pancreatitis. Abdomen/Pelvis CT (12/28/16)----> 1. CT findings typical of acute cholecystitis. Sludge and stones are seen in the gallbladder lumen. No biliary obstruction. 2. Mass posteriorly within the pelvic cavity that believe is most likely a uterine fibroid. Ultrasound surveillance suggested. MRCP (12/30/16)---> 1. 4 mm common bile duct stone with mild prominence of the common bile duct measuring 7 mm in diameter. This is just out of the range of normal in terms of size for a patient of this age. 2. Acute cholecystitis. Lipase increased, 1313. Taking full liquids, but still having gas pain after eating this. Had an episode of diarrhea after eating last night. She was started on Simethicone yesterday. LFTs trending down. - Choledocholithiasis. ERCP with sphincterotomy, stone removal, bx antrum yesterday. Found mild gastritis. - Cholecystitis. GS following, plan for outpatient cholecystectomy. - Fever/Chills. Improved. Afebrile since 12/30. Dejuan Louis. PLAN: - Full liquids - Cont. PPI - Cont. Simethicone - Cont. Abx. - Recheck Lipase in am - Repeat CT of abdomen to r/o pseudocyst -IGG 4 to r/o autoimmune pancreatitis -Further recommendations to follow based on results of above Patient seen and examined by Dr. Warner and myself and this note is written on his behalf Daya Mclaughlin Jan 03, 2017 15:15
[2017-01-03] MEDS ORDERED: DIATRIZOATE MEGLUM/DIATRIZOATE SOD 9 ML CUP PO ONE (16:00)
[2017-01-03] MEDS ORDERED: IOHEXOL 350 MG/ML 10 ML VIAL (for RAD DIAG) IV ONE (23:27)
--- NOTE | 2017-01-04 01:26 | RADRPT ---
EXAM DATE/TIME: 01/03/2017 23:25 [facility] COMPARISON: No previous studies available for comparison. INDICATIONS : Abdominal pain; possible acute cholecystitis. IV CONTRAST: 95 cc Omnipaque 350 (iohexol) IV ORAL CONTRAST: Prescribed oral contrast ingested. RADIATION DOSE: 15.01 CTDIvol (mGy) MEDICAL HISTORY : Cardiovascular disease. Diabetes mellitus type 2. SURGICAL HISTORY : None. ENCOUNTER: Initial ACUITY: 1 day PAIN SCALE: 6/10 LOCATION: abdomen TECHNIQUE: Volumetric scanning of the abdomen and pelvis was performed. Using automated exposure control and ad justment of the mA and/or kV according to patient size, radiation dose was kept as low as reasonably achievable to obtain optimal diagnostic quality images. FINDINGS: Comparison is . Again seen is gallbladder wall thickening with gallstones in the gallbladder. There is also some trace pericholecystic fluid. Distal common bile duct measures about [address], stable to slightly increased from December 28. Lung bases demonstrate minimal atelectasis or scarring. Mild fatty liver. Spleen, adrenals, kidneys a nd pancreas unremarkable. No free fluid. No bowel obstruction. No adenopathy. Again seen is a 4.6 cm fibroid posterior uterus. CONCLUSION: 1. Persistent gallbladder wall thickening with gallstones similar to December 28. Findings most chao cteristic of a mild cholecystitis. The common bile duct measures 10 mm. 2. Uterine fibroid. Shahbaz Medina MD on January 04, 2017 at 1:13 Board Certified Radiologist. This report was verified electronically.
[2017-01-04] MEDS: metroNIDAZOLE 500 MG INJ 100 ML IV SCH ×3 (05:00→21:23)
[2017-01-04] MEDS: SIMETHICONE 125 MG CHEWABLE TAB PO SCH ×3 (06:00→21:23)
[2017-01-04 07:34] LABS: INDIRECT BILIRUBIN 0.3 MG/DL (0.0-0.8); TOTAL BILIRUBIN ADULT 0.4 MG/DL (0.2-1.0)
[2017-01-04 08:00] VITALS: BP 122/68; PULSE 68; RESP 18; TEMP 97.4; O2SAT 96
[2017-01-04] MEDS: SODIUM CHLORIDE 0.9% FLUSH 5 ML FLUSH IV SCH ×2 (09:00→21:23)
[2017-01-04] MEDS: LORATADINE 10 MG TAB PO SCH (09:47)
[2017-01-04] MEDS: CYANOCOBALAMIN 1,000 MCG TAB PO SCH (09:47)
[2017-01-04] MEDS: PANTOPRAZOLE SOD 40 MG DELAYED RELEASE TAB PO SCH (09:47)
--- NOTE | 2017-01-04 10:16 | HHI.GIFU ---
Subjective Remarks Resting in bed. States she had increased abdominal pain yesterday, but is much improved today and tolerated the grits this morning. No vomiting. (Catherine Gutierrez) Objective Vitals I&O Vital Signs Date Time Temp Pulse Resp B/P Pulse Ox O2 Delivery O2 Flow Rate FiO2 01/04/17 08:00 97.4 68 18 122/68 96 01/03/17 23:50 96.5 72 19 142/64 95 01/03/17 20:21 96.4 71 18 132/71 96 01/03/17 16:00 97.3 72 18 133/72 98 01/03/17 12:21 Room Air 01/03/17 12:00 97.4 70 18 132/75 97 01/03/17 12:00 95 I/O 01/03/17 01/03/17 01/03/17 01/04/17 01/04/17 01/04/17 07:00 15:00 23:00 07:00 15:00 23:00 Intake Total 1507 ml 480 ml 240 ml Balance 1507 ml 480 ml 240 ml Intake Oral 960 ml 480 ml 240 ml IV Total 547 ml # Voids 1 4 5 2 # Bowel Movements 0 0 0 0 Laboratory Laboratory Tests Test 01/03/17 01/04/17 21:33 06:05 Blood Urea Nitrogen 7 Creatinine 0.73 Estimat Glomerular Filtration 81 Rate Total Bilirubin 0.4 Direct Bilirubin 0.1 Indirect Bilirubin 0.3 Aspartate Amino Transf 13 (AST/SGOT) Alanine Aminotransferase 41 (ALT/SGPT) Alkaline Phosphatase 140 Total Protein 5.8 Albumin 3.0 Lipase 808 Imaging Last Impressions Abdomen/Pelvis CT 01/03/17 0000 Signed Impressions: Service Date/Time: Tuesday, January 03, 2017 23:25 - CONCLUSION: 1. Persistent gallbladder wall thickening with gallstones similar to December 28. Findings most characteristic of a mild cholecystitis. The common bile duct measures 10 mm. 2. Uterine fibroid. Shahbaz Medina MD GI Procedure 12/31/16 0000 Signed Impressions: Service Date/Time: December 16:33 - CONCLUSION: ERCP as above. Sam Estevez MD Cholangiopancreatography MRI 12/30/16 0000 Signed Impressions: Service Date/Time: Friday, December 30, 2016 15:57 - CONCLUSION: 1. 4 mm common bile duct stone with mild prominence of the common bile duct measuring 7 mm in diameter. This is just out of the range of normal in terms of size for a patient of this age. 2. Acute cholecystitis. Sam Esparza Jr., MD Physical Exam HEENT: PERRLA. Normocephalic; atraumatic; no jaundice. CHEST: CTA CARDIAC: RRR ABDOMEN: Soft, nondistended, mild epigastric tenderness; no hepatosplenomegaly ; bowel sounds x 4 quadrants. EXTREMITIES: No clubbing, cyanosis, or edema. SKIN: Normal; no rash; no jaundice. 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 (Catherine Gutierrez [facility]) Assessment and Plan Plan ASSESSMENT: - Gallstone pancreatitis. Abdomen/Pelvis CT (12/28/16)----> 1. CT findings typical of acute cholecystitis. Sludge and stones are seen in the gallbladder lumen. No biliary obstruction. 2. Mass posteriorly within the pelvic cavity that believe is most likely a uterine fibroid. Ultrasound surveillance suggested. MRCP (12/30/16)---> 1. 4 mm common bile duct stone with mild prominence of the common bile duct measuring 7 mm in diameter. This is just out of the range of normal in terms of size for a patient of this age. 2. Acute cholecystitis. Lipase improved today 808. Abdomen/Pelvis CT (01/03/17)-----> 1. Persistent gallbladder wall thickening with gallstones similar to December 28. Findings most characteristic of a mild cholecystitis. The common bile duct measures 10 mm. 2. Uterine fibroid. IgG 4 level pending. Full liquids. PPI, Simethicone. LFTs continuing to trend down. - Choledocholithiasis. ERCP with sphincterotomy, stone removal, bx antrum yesterday. Found mild gastritis. - Cholecystitis. GS following, plan for outpatient cholecystectomy. - Fever/Chills. Improved. Afebrile since 12/30. Dejuan Louis. PLAN: - Full liquids - Cont. PPI - Cont. Simethicone - Cont. Abx. - Recheck Lipase in am - Await IGG 4 to r/o autoimmune pancreatitis - FU with GS per their recommendations - Further recommendations to follow based on results of above - Patient seen and examined by Dr. Zuleta and myself and this note is written on his behalf (Catherine Gutierrez) Physician Comments Patient seen and examined Agree with above Continue with current supportive care Monitor labs (Feng Zuleta MD) Catherine Gutierrez Jan 04, 2017 10:16 Feng Zuleta MD Jan 05, 2017 00:26
[2017-01-04 12:00] VITALS: BP 133/65; PULSE 76; RESP 16; TEMP 96.2; O2SAT 96
[2017-01-04] MEDS: LEVOFLOXACIN 500 MG PREMIX INJ 100 ML IV SCH (13:28)
[2017-01-04] MEDS: ALPRAZolam 0.25 MG TAB PO PRN (15:02)
[2017-01-04 16:00] VITALS: BP 122/74; PULSE 78; RESP 18; TEMP 97.2; O2SAT 98
--- NOTE | 2017-01-04 16:25 | HHI.PR ---
Subjective Remarks Pt is tolerating PO intake. Objective Vitals Vital Signs Date Time Temp Pulse Resp B/P Pulse Ox O2 Delivery O2 Flow Rate FiO2 01/04/17 12:00 96.2 76 16 133/65 96 01/04/17 08:00 97.4 68 18 122/68 96 01/03/17 23:50 96.5 72 19 142/64 95 01/03/17 20:21 96.4 71 18 132/71 96 01/03/17 01/03/17 01/04/17 15:00 23:00 07:00 Intake Total 1507 ml 480 ml 240 ml Balance 1507 ml 480 ml 240 ml Intake Oral 960 ml 480 ml 240 ml IV Total 547 ml # Voids 4 5 2 # Bowel Movements 0 0 0 Result Diagram: 01/03/172132 Imaging Last Impressions GI Procedure 12/31/16 0000 Signed Impressions: Service Date/Time: December 16:33 - CONCLUSION: ERCP as above. Sam Estevez MD Cholangiopancreatography MRI 12/30/16 0000 Signed Impressions: Service Date/Time: Friday, December 30, 2016 15:57 - CONCLUSION: 1. 4 mm common bile duct stone with mild prominence of the common bile duct measuring 7 mm in diameter. This is just out of the range of normal in terms of size for a patient of this age. 2. Acute cholecystitis. Sam Esparza Jr., MD Abdomen/Pelvis CT 12/28/161854 Signed Impressions: Service Date/Time: Wednesday, December 28, 2016 19:57 - CONCLUSION: 1. CT findings typical of acute cholecystitis. Sludge and stones are seen in the gallbladder lumen. No biliary obstruction. 2. Mass posteriorly within the pelvic cavity that believe is most likely a uterine fibroid. Ultrasound surveillance suggested. Michel Andres MD Last Impressions Abdomen/Pelvis CT 12/28/161854 Signed Impressions: Service Date/Time: Wednesday, December 28, 2016 19:57 - CONCLUSION: 1. CT findings typical of acute cholecystitis. Sludge and stones are seen in the gallbladder lumen. No biliary obstruction. 2. Mass posteriorly within the pelvic cavity that believe is most likely a uterine fibroid. Ultrasound surveillance suggested. Michel Andres MD Objective Remarks GENERAL: This is a well-nourished, well-developed patient, in no apparent distress. CARDIOVASCULAR: Regular rate and rhythm without murmurs, gallops, or rubs. RESPIRATORY: Clear to auscultation. Breath sounds equal bilaterally. No wheezes , rales, or rhonchi. GASTROINTESTINAL: Abdomen soft, non-tender, nondistended. Normal active bowel sounds MUSCULOSKELETAL: Extremities without clubbing, cyanosis, or edema. NEURO: Alert & Oriented x4 to person, place, time, situation. Moves all ext x4 A/P Problem List: (1) Acute cholecystitis Status: Acute Plan: - improving - comgmt with GI - Pt admitted with acute cholecystitis and mild pancreatitis with noted gallstone/sludge and choledocholithiasis - Pt has been seen by GI and underwent ERCP with sphincterotomy with balloon sweep and stone removal on 12/31/[address] Warner. - The case was discussed between Dr. Lutz and Gen surgery, no lap maxim until 6 weeks - full liquid diet - repeat CT abd (01/04/17) --> probable mild cholecystitis - Lipase now declining 1,410 (12/30/16) & 808 (/) - repeat lipase in AM - possible d/c to home in next 1-2 days, if continues to improve (2) Elevated lipase Status: Acute Plan: - See above (3) GERD (gastroesophageal reflux disease) Status: Chronic Plan: - PPI (4) Anxiety Status: Chronic Plan: - Continue rx. - Ativan trae. Mao Ma DO Jan 04, 2017 16:25
[2017-01-04 20:10] VITALS: BP 140/83; PULSE 79; RESP 16; TEMP 96.8; O2SAT 98
[2017-01-04] MEDS: TEMAZEPAM 15 MG CAP PO PRN ×2 (21:23)
[2017-01-05] VITALS: BP 108/55; PULSE 79; RESP 16; TEMP 97.2; O2SAT 95
[2017-01-05] MEDS: ALPRAZolam 0.25 MG TAB PO PRN ×3 (02:38→18:24)
[2017-01-05] MEDS: SIMETHICONE 125 MG CHEWABLE TAB PO SCH ×3 (06:05→21:21)
[2017-01-05] MEDS: metroNIDAZOLE 500 MG INJ 100 ML IV SCH (06:05)
[2017-01-05 08:00] VITALS: BP 99/59; PULSE 71; RESP 16; TEMP 95.8; O2SAT 97
[2017-01-05] MEDS: LORATADINE 10 MG TAB PO SCH (10:36)
[2017-01-05] MEDS: CYANOCOBALAMIN 1,000 MCG TAB PO SCH (10:36)
[2017-01-05] MEDS: SODIUM CHLORIDE 0.9% FLUSH 5 ML FLUSH IV SCH ×2 (10:36→21:22)
[2017-01-05] MEDS: PANTOPRAZOLE SOD 40 MG DELAYED RELEASE TAB PO SCH (10:36)
--- NOTE | 2017-01-05 10:37 | HHI.PR ---
Subjective Remarks Pt reports no pain with the full liquid diet. She is anxious to eat solid foods. Afebrile. Objective Vitals Vital Signs Date Time Temp Pulse Resp B/P Pulse Ox O2 Delivery O2 Flow Rate FiO2 01/05/17 08:00 95.8 71 16 99/59 97 01/05/17 00:00 97.2 79 16 108/55 95 01/04/17 20:10 96.8 79 16 140/83 98 01/04/17 16:00 97.2 78 18 122/74 98 01/04/17 12:00 96.2 76 16 133/65 96 01/04/17 01/04/17 01/05/17 15:00 23:00 07:00 Intake Total 1109 ml 480 ml 240 ml Output Total 1200 ml Balance -91 ml 480 ml 240 ml Intake Oral 1000 ml 480 ml 240 ml IV Total 109 ml Output Urine Total 1200 ml # Voids 6 3 1 # Bowel Movements 2 1 0 Result Diagram: 01/03/173 Other Results Laboratory Tests Test 01/03/17 01/04/17 01/05/17 21:33 06:05 06:38 Blood Urea Nitrogen 7 MG/DL Creatinine 0.73 MG/DL Estimat Glomerular Filtration 81 ML/MIN Rate Total Bilirubin 0.4 MG/DL Direct Bilirubin 0.1 MG/DL Indirect Bilirubin 0.3 MG/DL Aspartate Amino Transf 13 U/L (AST/SGOT) Alanine Aminotransferase 41 U/L (ALT/SGPT) Alkaline Phosphatase 140 U/L Total Protein 5.8 GM/DL Albumin 3.0 GM/DL Lipase 808 U/L 1216 U/L Imaging Last Impressions GI Procedure 12/31/16 0000 Signed Impressions: Service Date/Time: December 16:33 - CONCLUSION: ERCP as above. Sam Estevez MD Cholangiopancreatography MRI 12/30/16 0000 Signed Impressions: Service Date/Time: Friday, December 30, 2016 15:57 - CONCLUSION: 1. 4 mm common bile duct stone with mild prominence of the common bile duct measuring 7 mm in diameter. This is just out of the range of normal in terms of size for a patient of this age. 2. Acute cholecystitis. Sam Esparza Jr., MD Abdomen/Pelvis CT 12/28/16 3445 Signed Impressions: Service Date/Time: Wednesday, December 28, 2016 19:57 - CONCLUSION: 1. CT findings typical of acute cholecystitis. Sludge and stones are seen in the gallbladder lumen. No biliary obstruction. 2. Mass posteriorly within the pelvic cavity that believe is most likely a uterine fibroid. Ultrasound surveillance suggested. Michel Andres MD Last Impressions Abdomen/Pelvis CT 12/28/16 1855 Signed Impressions: Service Date/Time: Wednesday, December 28, 2016 19:57 - CONCLUSION: 1. CT findings typical of acute cholecystitis. Sludge and stones are seen in the gallbladder lumen. No biliary obstruction. 2. Mass posteriorly within the pelvic cavity that believe is most likely a uterine fibroid. Ultrasound surveillance suggested. Michel Andres MD Objective Remarks General: NAD, AAOx3 Chest: CTA Cardiac: Regular Abd: +BS, soft ND/NT Ext: No edema A/P Problem List: (1) Acute cholecystitis Status: Acute Plan: - improving - comgmt with GI - Pt admitted with acute cholecystitis and mild pancreatitis with noted gallstone/sludge and choledocholithiasis - Pt has been seen by GI and underwent ERCP with sphincterotomy with balloon sweep and stone removal on 12/31/[address] Warner. - The case was discussed between Dr. Lutz and Gen surgery, no lap maxim until 6 weeks - Pt is tolerating full liquid diet with no pain - Repeat CT abd (01/04/17) --> probable mild cholecystitis - Lipase increased today to 1216 but pt is asymptomatic and afebrile. - Discussed the case with GI and ok to advance diet today. - Repeat lipase in AM - possible d/c to home tomorrow if continues to be stable. (2) Elevated lipase Status: Acute Plan: - See above (3) GERD (gastroesophageal reflux disease) Status: Chronic Plan: - PPI (4) Anxiety Status: Chronic Plan: - Continue rx. - Ativan prn. Assessment and Plan Patient examined. Assessment and plan formulated with Tosha Valencia PA-C. I agree with the above. Tosha Valencia Jan 05, 2017 10:37 Mao Ma DO Jan 08, 2017 11:10
[2017-01-05 12:23] VITALS: BP 110/70; PULSE 86; RESP 16; TEMP 97.4; O2SAT 97
--- NOTE | 2017-01-05 13:11 | HHI.GIFU ---
Subjective Remarks Patient is resting in bed, no abdomen pain, no nausea, no vomiting, no fever or chills, tolerating regular diet ok. 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 OPERATOR) Objective Vitals I&O Vital Signs Date Time Temp Pulse Resp B/P Pulse Ox O2 Delivery O2 Flow Rate FiO2 01/05/17 12:23 97.4 86 16 110/70 97 01/05/17 08:00 95.8 71 16 99/59 97 01/05/17 00:00 97.2 79 16 108/55 95 01/04/17 20:10 96.8 79 16 140/83 98 01/04/17 16:00 97.2 78 18 122/74 98 I/O 01/04/17 01/04/17 01/04/17 01/05/17 01/05/17 01/05/17 07:00 15:00 23:00 07:00 15:00 23:00 Intake Total 240 ml 1109 ml 480 ml 240 ml Output Total 1200 ml Balance 240 ml -91 ml 480 ml 240 ml Intake Oral 240 ml 1000 ml 480 ml 240 ml IV Total 109 ml Output Urine Total 1200 ml # Voids 2 6 3 1 # Bowel Movements 0 2 1 0 Laboratory Laboratory Tests Test 01/05/17 06:38 Lipase 1216 Imaging Last Impressions Abdomen/Pelvis CT 01/03/17 0000 Signed Impressions: Service Date/Time: Tuesday, January 03, 2017 23:25 - CONCLUSION: 1. Persistent gallbladder wall thickening with gallstones similar to December 28. Findings most characteristic of a mild cholecystitis. The common bile duct measures 10 mm. 2. Uterine fibroid. Shahbaz Medina MD GI Procedure 12/31/16 0000 Signed Impressions: Service Date/Time: December 16:33 - CONCLUSION: ERCP as above. Sam Estevez MD Cholangiopancreatography MRI 12/30/16 0000 Signed Impressions: Service Date/Time: Friday, December 30, 2016 15:57 - CONCLUSION: 1. 4 mm common bile duct stone with mild prominence of the common bile duct measuring 7 mm in diameter. This is just out of the range of normal in terms of size for a patient of this age. 2. Acute cholecystitis. Sam Espazra Jr., MD Physical Exam HEENT: PERRLA. Normocephalic; atraumatic; no jaundice. CHEST: CTA CARDIAC: RRR ABDOMEN: Soft, nondistended, no tenderness; no hepatosplenomegaly; bowel sounds x 4 quadrants. EXTREMITIES: No clubbing, cyanosis, or edema. SKIN: Normal; no rash; no jaundice. PRIMER PRESS OPERATOR: No focal deficits; A&O x 3. (Angela Christie) Assessment and Plan Plan ASSESSMENT: - Gallstone pancreatitis. increase in lipase today, she is however, asymptomatic , no GI issues, tolerating regular diet okay so far. Abdomen/Pelvis CT (12/28/16)----> 1. CT findings typical of acute cholecystitis. Sludge and stones are seen in the gallbladder lumen. No biliary obstruction. 2. Mass posteriorly within the pelvic cavity that believe is most likely a uterine fibroid. Ultrasound surveillance suggested. MRCP (12/30/16)---> 1. 4 mm common bile duct stone with mild prominence of the common bile duct measuring 7 mm in diameter. This is just out of the range of normal in terms of size for a patient of this age. 2. Acute cholecystitis. Lipase improved today 808. Abdomen/Pelvis CT (01/03/17)-----> 1. Persistent gallbladder wall thickening with gallstones similar to December 28. Findings most characteristic of a mild cholecystitis. The common bile duct measures 10 mm. 2. Uterine fibroid. IgG 4 level pending. - Choledocholithiasis. ERCP with sphincterotomy (12/31/16) stone removal, bx antrum yesterday. Found mild gastritis. - Cholecystitis. GS following, plan for outpatient cholecystectomy. PLAN: - JERAMY - Cont. PPI - Cont. Simethicone - Recheck Lipase in am - Await IGG 4 to r/o autoimmune pancreatitis - FU with GS per their recommendations - Further recommendations to follow based on results of above - Patient seen and examined by Dr. Zuleta and myself and this note is written on his behalf (Angela Christie) Physician Comments Patient seen and examined Agree with above Continue with current supportive care Monitor labs (Feng Zuleta MD) Angela Christie Jan 05, 2017 13:11 Feng Zuleta MD Jan 05, 2017 21:42
[2017-01-05 16:00] VITALS: BP 101/62; PULSE 83; RESP 16; TEMP 95.8; O2SAT 92
[2017-01-05 19:45] VITALS: BP 123/66; PULSE 77; RESP 17; TEMP 96.4; O2SAT 96
[2017-01-05] MEDS: TEMAZEPAM 15 MG CAP PO PRN (21:21)
[2017-01-06 00:40] VITALS: BP 113/57; PULSE 72; RESP 17; TEMP 96.5; O2SAT 98
[2017-01-06] MEDS: SIMETHICONE 125 MG CHEWABLE TAB PO SCH ×3 (05:52→21:18)
[2017-01-06 08:00] VITALS: BP 136/92; PULSE 71; RESP 16; TEMP 96.5; O2SAT 98
[2017-01-06] MEDS: PANTOPRAZOLE SOD 40 MG DELAYED RELEASE TAB PO SCH (09:19)
[2017-01-06] MEDS: CYANOCOBALAMIN 1,000 MCG TAB PO SCH (09:19)
[2017-01-06] MEDS: LORATADINE 10 MG TAB PO SCH (09:19)
[2017-01-06] MEDS: SODIUM CHLORIDE 0.9% FLUSH 5 ML FLUSH IV SCH ×2 (09:21→21:19)
[2017-01-06] MEDS: ALPRAZolam 0.25 MG TAB PO PRN (09:35)
--- NOTE | 2017-01-06 11:31 | HHI.PR ---
Subjective Remarks Pt feeling well today. She tolerated advanced diet without any increased pain, nausea/vomiting. Pt is afebrile. Objective Vitals Vital Signs Date Time Temp Pulse Resp B/P Pulse Ox O2 Delivery O2 Flow Rate FiO2 01/06/17 08:00 96.5 71 16 136/92 98 01/06/17 00:40 96.5 72 17 113/57 98 01/05/17 19:45 96.4 77 17 123/66 96 01/05/17 16:00 95.8 83 16 101/62 92 01/05/17 12:23 97.4 86 16 110/70 97 01/05/17 01/05/17 01/06/17 15:00 23:00 07:00 Intake Total 360 ml 480 ml 600 ml Balance 360 ml 480 ml 600 ml Intake Oral 360 ml 480 ml 600 ml # Voids 4 3 3 # Bowel Movements 0 2 0 Result Diagram: 01/03/172132 Other Results Laboratory Tests Test 01/05/17 01/06/17 06:38 05:53 Lipase 1216 U/L 1896 U/L Imaging Last Impressions GI Procedure 12/31/16 0000 Signed Impressions: Service Date/Time: December 16:33 - CONCLUSION: ERCP as above. Sam Estevez MD Cholangiopancreatography MRI 12/30/16 0000 Signed Impressions: Service Date/Time: Friday, December 30, 2016 15:57 - CONCLUSION: 1. 4 mm common bile duct stone with mild prominence of the common bile duct measuring 7 mm in diameter. This is just out of the range of normal in terms of size for a patient of this age. 2. Acute cholecystitis. Sam Esparza Jr., MD Abdomen/Pelvis CT 12/28/161854 Signed Impressions: Service Date/Time: Wednesday, December 28, 2016 19:57 - CONCLUSION: 1. CT findings typical of acute cholecystitis. Sludge and stones are seen in the gallbladder lumen. No biliary obstruction. 2. Mass posteriorly within the pelvic cavity that believe is most likely a uterine fibroid. Ultrasound surveillance suggested. Michel Andres MD Last Impressions Abdomen/Pelvis CT 12/28/161854 Signed Impressions: Service Date/Time: Wednesday, December 28, 2016 19:57 - CONCLUSION: 1. CT findings typical of acute cholecystitis. Sludge and stones are seen in the gallbladder lumen. No biliary obstruction. 2. Mass posteriorly within the pelvic cavity that believe is most likely a uterine fibroid. Ultrasound surveillance suggested. Michel Andres MD Objective Remarks General: NAD, AAOx3 Chest: CTA Cardiac: Regular Abd: +BS, soft ND/NT Ext: No edema A/P Problem List: (1) Acute cholecystitis Status: Acute Plan: - improving - comgmt with GI - Pt admitted with acute cholecystitis and mild pancreatitis with noted gallstone/sludge and choledocholithiasis - Pt has been seen by GI and underwent ERCP with sphincterotomy with balloon sweep and stone removal on 12/31/[address] Warner. - The case was discussed between Dr. Lutz and Gen surgery, no lap maxim until 6 weeks - Repeat CT abd (01/04/17) --> probable mild cholecystitis - Pt is tolerating heart healthy soft diet with no pain - Lipase increased again today to 1896 but pt is asymptomatic and afebrile. - Discussed the case with GI and we will hold the pt today and repeat labs in AM. If continued increase ?repeat imaging. - Repeat lipase in AM - possible d/c to home tomorrow if lipase improves. (2) Elevated lipase Status: Acute Plan: - See above (3) GERD (gastroesophageal reflux disease) Status: Chronic Plan: - PPI (4) Anxiety Status: Chronic Plan: - Continue rx. - Ativan prn. Assessment and Plan Patient examined. Assessment and plan formulated with Tosha Valencia PA-C. I agree with the above. Tosha Valencia Jan 06, 2017 11:31 Mao Ma DO Jan 08, 2017 11:11
[2017-01-06 11:51] VITALS: BP 143/65; PULSE 75; RESP 16; TEMP 95.8; O2SAT 96
--- NOTE | 2017-01-06 13:15 | HHI.GIFU ---
Subjective Remarks Patient is resting in bed, comfortable, tolerating diet okay, no abdomen pain, no nausea, no vomiting. 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) Objective Vitals I&O Vital Signs Date Time Temp Pulse Resp B/P Pulse Ox O2 Delivery O2 Flow Rate FiO2 01/06/17 11:51 95.8 75 16 143/65 96 01/06/17 08:00 96.5 71 16 136/92 98 01/06/17 00:40 96.5 72 17 113/57 98 01/05/17 19:45 96.4 77 17 123/66 96 01/05/17 16:00 95.8 83 16 101/62 92 I/O 01/05/17 01/05/17 01/05/17 01/06/17 01/06/17 01/06/17 07:00 15:00 23:00 07:00 15:00 23:00 Intake Total 240 ml 360 ml 480 ml 600 ml Balance 240 ml 360 ml 480 ml 600 ml Intake Oral 240 ml 360 ml 480 ml 600 ml # Voids 1 4 3 3 # Bowel Movements 0 0 2 0 Laboratory Laboratory Tests Test 01/06/17 05:53 Lipase 1896 Imaging Last Impressions Abdomen/Pelvis CT 01/03/17 0000 Signed Impressions: Service Date/Time: Tuesday, January 03, 2017 23:25 - CONCLUSION: 1. Persistent gallbladder wall thickening with gallstones similar to December 28. Findings most characteristic of a mild cholecystitis. The common bile duct measures 10 mm. 2. Uterine fibroid. Shahbaz Medina MD GI Procedure 12/31/16 0000 Signed Impressions: Service Date/Time: December 16:33 - CONCLUSION: ERCP as above. Sam Estevez MD Cholangiopancreatography MRI 12/30/16 0000 Signed Impressions: Service Date/Time: Friday, December 30, 2016 15:57 - CONCLUSION: 1. 4 mm common bile duct stone with mild prominence of the common bile duct measuring 7 mm in diameter. This is just out of the range of normal in terms of size for a patient of this age. 2. Acute cholecystitis. Sam Esparza Jr., MD Physical Exam HEENT: PERRLA. Normocephalic; atraumatic; no jaundice. CHEST: CTA CARDIAC: RRR ABDOMEN: Soft, nondistended, no tenderness; no hepatosplenomegaly; bowel sounds x 4 quadrants. EXTREMITIES: No clubbing, cyanosis, or edema. SKIN: Normal; no rash; no jaundice. INSPECTOR CONVEYOR LINE: No focal deficits; A&O x 3. (Angela Christie) Assessment and Plan Plan ASSESSMENT: - Gallstone pancreatitis.Lipase continue to worsen, she is however, asymptomatic , no GI issues, tolerating regular diet okay so far. Abdomen/Pelvis CT (12/28/16)----> 1. CT findings typical of acute cholecystitis. Sludge and stones are seen in the gallbladder lumen. No biliary obstruction. 2. Mass posteriorly within the pelvic cavity that believe is most likely a uterine fibroid. Ultrasound surveillance suggested. MRCP (12/30/16)---> 1. 4 mm common bile duct stone with mild prominence of the common bile duct measuring 7 mm in diameter. This is just out of the range of normal in terms of size for a patient of this age. 2. Acute cholecystitis. Lipase improved today 808. Abdomen/Pelvis CT (01/03/17)-----> 1. Persistent gallbladder wall thickening with gallstones similar to December 28. Findings most characteristic of a mild cholecystitis. The common bile duct measures 10 mm. 2. Uterine fibroid. IgG 4 level pending. - Choledocholithiasis. ERCP with sphincterotomy (12/31/16) stone removal, bx antrum Found mild gastritis. - Cholecystitis. GS following, plan for outpatient cholecystectomy. PLAN: - JERAMY - LFTs - Lipase in am, if continue to be elevated, will consider repeat imaging, and possible change diet to NPO - Cont. Simethicone - Await IGG 4 to r/o autoimmune pancreatitis - FU with GS per their recommendations - Further recommendations to follow based on results of above - Patient seen and examined by Dr. Zuleta and myself and this note is written on his behalf (Angela Christie) Physician Comments Patient seen and examined Agree with above Continue with current supportive care Monitor labs (Feng Zuleta MD) Angela Christie Jan 06, 2017 13:15 Feng Zuleta MD Jan 06, 2017 22:00
[2017-01-06 14:45] LABS: INDIRECT BILIRUBIN 0.2 MG/DL (0.0-0.8); TOTAL BILIRUBIN ADULT 0.3 MG/DL (0.2-1.0)
[2017-01-06 16:00] VITALS: BP 118/64; PULSE 76; RESP 16; TEMP 96.9; O2SAT 96
[2017-01-06 20:30] VITALS: BP 123/58; PULSE 75; RESP 16; TEMP 96.3; O2SAT 96
[2017-01-06] MEDS: TEMAZEPAM 15 MG CAP PO PRN (21:18)
[2017-01-06 23:53] LABS: IGG SUBCLASSES 4 17.2 mg/dL (4-86)
[2017-01-07 00:10] VITALS: BP 118/61; PULSE 77; RESP 16; TEMP 96.8; O2SAT 95
[2017-01-07 03:55] VITALS: BP 107/64; PULSE 71; RESP 16; TEMP 97.3; O2SAT 98
[2017-01-07] MEDS: ACETAMINOPHEN 325 MG TAB PO PRN (04:44)
[2017-01-07] MEDS: SIMETHICONE 125 MG CHEWABLE TAB PO SCH ×3 (04:45→21:36)
[2017-01-07 08:00] VITALS: BP 131/71; PULSE 88; RESP 18; TEMP 96; O2SAT 97
[2017-01-07] MEDS: ALPRAZolam 0.25 MG TAB PO PRN ×2 (08:17→15:32)
[2017-01-07] MEDS: SODIUM CHLORIDE 0.9% FLUSH 5 ML FLUSH IV SCH ×2 (08:17→21:36)
[2017-01-07] MEDS: CYANOCOBALAMIN 1,000 MCG TAB PO SCH (08:17)
[2017-01-07] MEDS: PANTOPRAZOLE SOD 40 MG DELAYED RELEASE TAB PO SCH (08:17)
[2017-01-07] MEDS: LORATADINE 10 MG TAB PO SCH (08:17)
[2017-01-07] MEDS ORDERED: DIATRIZOATE MEGLUM/DIATRIZOATE SOD 9 ML CUP PO ONE (10:15)
--- NOTE | 2017-01-07 11:45 | HHI.PR ---
Subjective Remarks No new complaints. Pt tolerated her diet Denies any abd pain, nausea/vomiting Pt is very anxious and upset about her continued rise in the Lipase and need for continued hospital stay. Objective Vitals Vital Signs Date Time Temp Pulse Resp B/P Pulse Ox O2 Delivery O2 Flow Rate FiO2 01/07/17 08:21 Room Air 01/07/17 08:00 96.0 88 18 131/71 97 01/07/17 03:55 97.3 71 16 107/64 98 01/07/17 00:10 96.8 77 16 118/61 95 01/06/17 20:30 96.3 75 16 123/58 96 01/06/17 16:00 96.9 76 16 118/64 96 01/06/17 11:51 95.8 75 16 143/65 96 01/06/17 01/06/17 01/07/17 15:00 23:00 07:00 Intake Total 480 ml 960 ml 600 ml Balance 480 ml 960 ml 600 ml Intake Oral 480 ml 960 ml 600 ml # Voids 4 6 3 # Bowel Movements 1 0 0 Result Diagram: 01/03/172132 Other Results Laboratory Tests Test 01/06/17 01/07/17 05:53 06:09 Total Bilirubin 0.3 MG/DL Direct Bilirubin 0.1 MG/DL Indirect Bilirubin 0.2 MG/DL Aspartate Amino Transf 13 U/L (AST/SGOT) Alanine Aminotransferase 37 U/L (ALT/SGPT) Alkaline Phosphatase 120 U/L Total Protein 6.2 GM/DL Albumin 3.3 GM/DL Lipase 1896 U/L 2671 U/L Imaging Last Impressions GI Procedure 12/31/16 0000 Signed Impressions: Service Date/Time: December 16:33 - CONCLUSION: ERCP as above. Sam Estevez MD Cholangiopancreatography MRI 12/30/16 0000 Signed Impressions: Service Date/Time: Friday, December 30, 2016 15:57 - CONCLUSION: 1. 4 mm common bile duct stone with mild prominence of the common bile duct measuring 7 mm in diameter. This is just out of the range of normal in terms of size for a patient of this age. 2. Acute cholecystitis. Sam Esparaz Jr., MD Abdomen/Pelvis CT 12/28/16 7783 Signed Impressions: Service Date/Time: Wednesday, December 28, 2016 19:57 - CONCLUSION: 1. CT findings typical of acute cholecystitis. Sludge and stones are seen in the gallbladder lumen. No biliary obstruction. 2. Mass posteriorly within the pelvic cavity that believe is most likely a uterine fibroid. Ultrasound surveillance suggested. Michel Andres MD Last Impressions Abdomen/Pelvis CT 12/28/16 1855 Signed Impressions: Service Date/Time: Wednesday, December 28, 2016 19:57 - CONCLUSION: 1. CT findings typical of acute cholecystitis. Sludge and stones are seen in the gallbladder lumen. No biliary obstruction. 2. Mass posteriorly within the pelvic cavity that believe is most likely a uterine fibroid. Ultrasound surveillance suggested. Michel Andres MD Objective Remarks General: NAD, AAOx3 Chest: CTA Cardiac: Regular Abd: +BS, soft ND/NT Ext: No edema A/P Problem List: (1) Acute cholecystitis Status: Acute Plan: - improving - comgmt with GI - Pt admitted with acute cholecystitis and mild pancreatitis with noted gallstone/sludge and choledocholithiasis - Pt has been seen by GI and underwent ERCP with sphincterotomy with balloon sweep and stone removal on 12/31/[address] Warner. - The case was discussed between Dr. Lutz and Gen surgery, no lap maxim until 6 weeks - Repeat CT abd (01/04/17) --> probable mild cholecystitis - Pt is tolerating heart healthy soft diet with no pain - Lipase has been increasing over the last 3 days. Repeat labs today with Lipase of 2671 - Pt has been asymptomatic and afebrile. - The case was discussed with GI and they want the pt made NPO and to have a repeat CT Abd/pelvis with pancreatic protocol. - Repeat lipase in AM - Resume IVF - Supportive care - DVT prophylaxis with SCDs (2) Elevated lipase Status: Acute Plan: - See above (3) GERD (gastroesophageal reflux disease) Status: Chronic Plan: - PPI (4) Anxiety Status: Chronic Plan: - Continue rx. - Ativan prn. Assessment and Plan Patient examined. Assessment and plan formulated with Tosha Valencia PA-C. I agree with the above. Tosha Valencia Jan 07, 2017 11:45 Mao Ma DO Jan 08, 2017 11:11
[2017-01-07 12:00] VITALS: BP 126/76; PULSE 76; RESP 18; TEMP 96; O2SAT 99
--- NOTE | 2017-01-07 12:11 | HHI.GIFU ---
Subjective Remarks Pt resting in bed. States she feels about the same, epigastric bloating/gas discomfort, but no significant abdominal pain. States no n/v. Has been on low fat diet. (Catherine Gutierrez) Objective Vitals I&O Vital Signs Date Time Temp Pulse Resp B/P Pulse Ox O2 Delivery O2 Flow Rate FiO2 01/07/17 08:21 Room Air 01/07/17 08:00 96.0 88 18 131/71 97 01/07/17 03:55 97.3 71 16 107/64 98 01/07/17 00:10 96.8 77 16 118/61 95 01/06/17 20:30 96.3 75 16 123/58 96 01/06/17 16:00 96.9 76 16 118/64 96 01/06/17 11:51 95.8 75 16 143/65 96 I/O 01/06/17 01/06/17 01/06/17 01/07/17 01/07/17 01/07/17 07:00 15:00 23:00 07:00 15:00 23:00 Intake Total 600 ml 480 ml 960 ml 600 ml Balance 600 ml 480 ml 960 ml 600 ml Intake Oral 600 ml 480 ml 960 ml 600 ml # Voids 3 4 6 3 # Bowel Movements 0 1 0 0 Laboratory Laboratory Tests Test 01/07/17 06:09 Lipase 2671 Imaging Last Impressions Abdomen/Pelvis CT 01/03/17 0000 Signed Impressions: Service Date/Time: Tuesday, January 03, 2017 23:25 - CONCLUSION: 1. Persistent gallbladder wall thickening with gallstones similar to December 28. Findings most characteristic of a mild cholecystitis. The common bile duct measures 10 mm. 2. Uterine fibroid. Shahbaz Medina MD GI Procedure 12/31/16 0000 Signed Impressions: Service Date/Time: December 16:33 - CONCLUSION: ERCP as above. Sam Estevez MD Cholangiopancreatography MRI 12/30/16 0000 Signed Impressions: Service Date/Time: Friday, December 30, 2016 15:57 - CONCLUSION: 1. 4 mm common bile duct stone with mild prominence of the common bile duct measuring 7 mm in diameter. This is just out of the range of normal in terms of size for a patient of this age. 2. Acute cholecystitis. Sam Esparza Jr., MD Physical Exam HEENT: PERRLA. Normocephalic; atraumatic; no jaundice. CHEST: CTA CARDIAC: RRR ABDOMEN: Soft, nondistended, mild epigastric tenderness; no hepatosplenomegaly ; bowel sounds x 4 quadrants. EXTREMITIES: No clubbing, cyanosis, or edema. SKIN: Normal; no rash; no jaundice. FLOW TRADER: No focal deficits; A&O x 3. (Catherine Gutierrez) Assessment and Plan Plan ASSESSMENT: - Gallstone pancreatitis. Abdomen/Pelvis CT (12/28/16)----> 1. CT findings typical of acute cholecystitis. Sludge and stones are seen in the gallbladder lumen. No biliary obstruction. 2. Mass posteriorly within the pelvic cavity that believe is most likely a uterine fibroid. Ultrasound surveillance suggested. MRCP (12/30/16)---> 1. 4 mm common bile duct stone with mild prominence of the common bile duct measuring 7 mm in diameter. This is just out of the range of normal in terms of size for a patient of this age. 2. Acute cholecystitis. Abdomen/Pelvis CT (01/03/17)---- -> 1. Persistent gallbladder wall thickening with gallstones similar to December 28. Findings most characteristic of a mild cholecystitis. The common bile duct measures 10 mm. 2. Uterine fibroid. IgG 4 level 17.2. Was on Low fat diet, but lipase went up to 2671 today. Clinically, she is about the same, no significant abdominal pain, just some abdominal bloating and gas discomfort. She was made NPO and repeat imaging has been ordered. Meds reviewed to see if anything may be contributing. - Choledocholithiasis. ERCP with sphincterotomy (12/31/16) stone removal, bx antrum Found mild gastritis. - Cholecystitis. GS following, plan for outpatient cholecystectomy. PLAN: - NPO - Await CT Scan abdomen/pelvis with pancreatic protocol - PPI - Simethicone - FU with GS per their recommendations - Further recommendations to follow based on results of above - Patient seen and examined by Dr. Zuleta and myself and this note is written on his behalf (Catherine Gutierrez) Physician Comments Patient seen and examined Agree with above Continue with current supportive care Monitor labs CT of the abdomen is unremarkable for pancreatitis Patient does not have symptoms of pancreatitis Elevation of lipase is of unclear significance therefore will ask for amylase level It is possible that the lipase is coming from an extrapancreatic source We'll probably advance diet tomorrow and if all is stable possible discharge unless amylase is elevated too (Feng Zuleta MD) Catherine Gutierrez Jan 07, 2017 11:56 Feng Zuleta MD Jan 07, 2017 21:35
[2017-01-07] MEDS: SODIUM CHLOR 0.9% 1000 ML INJ 1,000 ML IV SCH ×2 (14:13→21:36)
[2017-01-07 15:40] VITALS: BP 112/82; PULSE 82; RESP 18; TEMP 96.4; O2SAT 99
[2017-01-07 17:01] VITALS: BP 113/70; PULSE 72; RESP 11; TEMP 97.3; O2SAT 98
[2017-01-07] MEDS ORDERED: IOHEXOL 350 MG/ML 10 ML VIAL (for RAD DIAG) IV ONE (20:03)
--- NOTE | 2017-01-07 21:09 | RADRPT ---
EXAM DATE/TIME: 01/07/2017 19:53 [facility] COMPARISON: CT ABDOMEN & PELVIS W CONTRAST, January 03, 2017, 23:25. INDICATIONS : Abdominal pain, evaluate pancreatitis. IV CONTRAST: 75 cc Omnipaque 350 (iohexol) IV ORAL CONTRAST: Prescribed oral contrast ingested. RADIATION DOSE: 9.96 CTDIvol (mGy) MEDICAL HISTORY : Cardiovascular disease. SURGICAL HISTORY : section. ENCOUNTER: Subsequent ACUITY: 1 week PAIN SCALE: 6/10 LOCATION: Bilateral TECHNIQUE: Volumetric scanning of the abdomen and pelvis was performed. Using automated exposure control and ad justment of the mA and/or kV according to patient size, radiation dose was kept as low as reasonably achievable to obtain optimal diagnostic quality images. FINDINGS: CT Abdomen: The liver, spleen, pancreas, kidneys, adrenals are unremarkable. There is no evidence for any appreciable pathological adenopathy, free fluid, or bowel obstruction. The gallbladder demonstr ates multiple stones without gallbladder wall thickening, or pericholecystic fluid. Tiny pericardial effusion is seen. CT pelvis: There is an approximate 4.5 cm exophytic fibroid coming off the uterus not significantly c hanged on the right side. CONCLUSION: Cholelithiasis and large uterine fibroid. Jorge A Mackay MD on January 07, 2017 at 21:03 Board Certified Radiologist. This report was verified electronically.
[2017-01-07] MEDS: TEMAZEPAM 15 MG CAP PO PRN (21:36)
[2017-01-08] VITALS: BP 136/58; PULSE 69; RESP 16; TEMP 96.8; O2SAT 95
[2017-01-08] MEDS: SIMETHICONE 125 MG CHEWABLE TAB PO SCH ×3 (05:25→20:28)
[2017-01-08 07:01] LABS: AUTOMATED NEUTROPHIL # 3.2 TH/MM3 (1.8-7.7); BASOPHIL # 0.1 TH/MM3 (0-0.2); BASOPHIL % 1.8 % (0.0-2.0); EOSINOPHIL # 0.2 TH/MM3 (0-0.4); EOSINOPHIL % 4.5 % (0.0-4.0); HEMATOCRIT 40.4 % (35.0-46.0); HEMO FLAGS DIFF FINAL; LYMPH % 22.2 % (9.0-44.0); LYMPHOCYTE # 1.1 TH/MM3 (1.0-4.8); MEAN CELL VOLUME 87.2 FL (80.0-100.0); MEAN CORPUSCULAR HEMOGLOBIN 29.7 PG (27.0-34.0); MONO % 8.5 % (0.0-8.0); PLATELET COUNT 276 TH/MM3 (150-450); RED BLOOD COUNT 4.63 MIL/MM3 (4.00-5.30); RED CELL DISTRIBUTION WIDTH 12.9 % (11.6-17.2); WHITE BLOOD COUNT 5.2 TH/MM3 (4.0-11.0)
[2017-01-08 07:08] LABS: ALT (GPT) 28 U/L (10-53); ANION GAP 9 MEQ/L (5-15); AST (GOT) 14 U/L (15-37); BLOOD UREA NITROGEN 12 MG/DL (7-18); CHLORIDE 108 MEQ/L (98-107); GLOMERULAR FILTRATION RATE 78 ML/MIN (>89); POTASSIUM 4.4 MEQ/L (3.5-5.1); SODIUM (NA) 145 MEQ/L (136-145)
[2017-01-08 07:10] LABS: ALKALINE PHOSPHATASE 96 U/L (45-117); TOTAL BILIRUBIN ADULT 0.5 MG/DL (0.2-1.0)
[2017-01-08 07:12] LABS: AMYLASE 116 U/L (25-115)
[2017-01-08 08:00] VITALS: BP 122/60; PULSE 68; RESP 18; TEMP 97.3; O2SAT 94
[2017-01-08] MEDS: CYANOCOBALAMIN 1,000 MCG TAB PO SCH (08:50)
[2017-01-08] MEDS: ALPRAZolam 0.25 MG TAB PO PRN (08:50)
[2017-01-08] MEDS: PANTOPRAZOLE SOD 40 MG DELAYED RELEASE TAB PO SCH (08:50)
[2017-01-08] MEDS: LORATADINE 10 MG TAB PO SCH (08:50)
[2017-01-08] MEDS: SODIUM CHLORIDE 0.9% FLUSH 5 ML FLUSH IV SCH ×2 (08:51→20:28)
--- NOTE | 2017-01-08 11:20 | HHI.PR ---
Subjective Remarks No abdominal pain. Eager for discharge. Objective Vitals Vital Signs Date Time Temp Pulse Resp B/P Pulse Ox O2 Delivery O2 Flow Rate FiO2 01/08/17 08:00 97.3 68 18 122/60 94 01/08/17 07:04 Room Air 01/08/17 00:00 96.8 69 16 136/58 95 01/07/17 17:01 97.3 72 11 113/70 98 01/07/17 15:40 96.4 82 18 112/82 99 01/07/17 12:00 96.0 76 18 126/76 99 01/07/17 01/07/17 01/08/17 15:00 23:00 07:00 Intake Total 0 ml 0 ml Balance 0 ml 0 ml Intake Oral 0 ml 0 ml # Voids 5 2 # Bowel Movements 0 Result Diagram: 01/08/17 0540 01/08/17 0540 Imaging Last Impressions Abdomen/Pelvis CT 01/07/17 0000 Signed Impressions: Service Date/Time: January 19:53 - CONCLUSION: Cholelithiasis and large uterine fibroid. Jorge A Mackay MD GI Procedure 12/31/16 0000 Signed Impressions: Service Date/Time: December 16:33 - CONCLUSION: ERCP as above. Sam Estevez MD Cholangiopancreatography MRI 12/30/16 0000 Signed Impressions: Service Date/Time: Friday, December 30, 2016 15:57 - CONCLUSION: 1. 4 mm common bile duct stone with mild prominence of the common bile duct measuring 7 mm in diameter. This is just out of the range of normal in terms of size for a patient of this age. 2. Acute cholecystitis. Sam Esaprza Jr., MD Objective Remarks General: NAD, AAOx3 Chest: CTA Cardiac: Regular Abd: +BS, soft ND/NT Ext: No edema A/P Problem List: (1) Acute cholecystitis Status: Acute Plan: - improving - comgmt with GI - Pt admitted with acute cholecystitis and mild pancreatitis with noted gallstone/sludge and choledocholithiasis - Pt has been seen by GI and underwent ERCP with sphincterotomy with balloon sweep and stone removal on 12/31/[address] Warner. - The case was discussed between Dr. Lutz and Gen surgery, no lap maxim until 6 weeks - Repeat CT abd (01/04/17) --> probable mild cholecystitis - CT abd/pelvis (01/07/17) --> Cholelithiasis and large uterine fibroid - lipase 2,671 (01/07/17), 1,726 (01/08/17) - Discussed the case with GI and ok to advance to clear diet - Repeat lipase in AM - possible d/c to home tomorrow if continues to be stable and lipase continues to decline. (2) Elevated lipase Status: Acute Plan: - See above (3) GERD (gastroesophageal reflux disease) Status: Chronic Plan: - PPI (4) Anxiety Status: Chronic Plan: - Continue rx. - Ativan trae. Mao Ma DO Jan 08, 2017 11:20 - Discussed the case with GI and ok to clear diet - Repeat lipase in AM - possible d/c to home tomorrow if continues to be stable and lipase continues to decline. (2) Elevated lipase Status: Acute Plan: - See above (3) GERD (gastroesophageal reflux disease) Status: Chronic Plan: - PPI (4) Anxiety Status: Chronic Plan: - Continue rx. - Ativan Mao Almodovar DO Jan 08, 2017 11:20
[2017-01-08 12:00] VITALS: BP 101/61; PULSE 83; RESP 18; TEMP 96; O2SAT 98
[2017-01-08 16:00] VITALS: BP 124/62; PULSE 76; RESP 18; TEMP 96.1; O2SAT 99
[2017-01-08] MEDS: TEMAZEPAM 15 MG CAP PO PRN (20:28)
[2017-01-08] MEDS: SODIUM CHLOR 0.9% 1000 ML INJ 1,000 ML IV SCH (20:29)
[2017-01-08 21:09] VITALS: BP 129/77; PULSE 86; RESP 16; TEMP 95.9; O2SAT 96
--- NOTE | 2017-01-09 00:15 | HHI.GIFU ---
Subjective Remarks Patient comfortable in bed tolerating liquids no complaints Objective Vitals I&O Vital Signs Date Time Temp Pulse Resp B/P Pulse Ox O2 Delivery O2 Flow Rate FiO2 01/08/17 21:09 95.9 86 16 129/77 96 01/08/17 16:00 96.1 76 18 124/62 99 01/08/17 12:00 96.0 83 18 101/61 98 01/08/17 08:00 97.3 68 18 122/60 94 01/08/17 07:04 Room Air I/O 01/08/17 01/08/17 01/08/17 01/09/17 01/09/17 01/09/17 07:00 15:00 23:00 07:00 15:00 23:00 Intake Total 0 ml 605 ml 720 ml Balance 0 ml 605 ml 720 ml Intake Oral 0 ml 720 ml IV Total 605 ml # Voids 2 4 1 # Bowel Movements 2 0 Laboratory Laboratory Tests Test 01/08/17 05:40 White Blood Count 5.2 Red Blood Count 4.63 Hemoglobin 13.7 Hematocrit 40.4 Mean Corpuscular Volume 87.2 Mean Corpuscular Hemoglobin 29.7 Mean Corpuscular Hemoglobin 34.0 Concent Red Cell Distribution Width 12.9 Platelet Count 276 Mean Platelet Volume 9.5 Neutrophils (%) (Auto) 63.0 Lymphocytes (%) (Auto) 22.2 Monocytes (%) (Auto) 8.5 Eosinophils (%) (Auto) 4.5 Basophils (%) (Auto) 1.8 Neutrophils # (Auto) 3.2 Lymphocytes # (Auto) 1.1 Monocytes # (Auto) 0.4 Eosinophils # (Auto) 0.2 Basophils # (Auto) 0.1 CBC Comment DIFF FINAL Differential Comment Sodium Level 145 Potassium Level 4.4 Chloride Level 108 Carbon Dioxide Level 28.0 Anion Gap 9 Blood Urea Nitrogen 12 Creatinine 0.75 Estimat Glomerular Filtration 78 Rate Random Glucose 88 Calcium Level 8.9 Total Bilirubin 0.5 Aspartate Amino Transf 14 (AST/SGOT) Alanine Aminotransferase 28 (ALT/SGPT) Alkaline Phosphatase 96 Total Protein 6.1 Albumin 3.4 Amylase Level 116 Lipase 1726 Physical Exam HEENT: PERRLA. Normocephalic; atraumatic; no jaundice. CHEST: CTA CARDIAC: RRR ABDOMEN: Soft, nondistended, mild epigastric tenderness; no hepatosplenomegaly ; bowel sounds x 4 quadrants. EXTREMITIES: No clubbing, cyanosis, or edema. SKIN: Normal; no rash; no jaundice. CABLEWAY OPERATOR: No focal deficits; A&O x 3. Assessment and Plan Plan ASSESSMENT: - Gallstone pancreatitis. Abdomen/Pelvis CT (12/28/16)----> 1. CT findings typical of acute cholecystitis. Sludge and stones are seen in the gallbladder lumen. No biliary obstruction. 2. Mass posteriorly within the pelvic cavity that believe is most likely a uterine fibroid. Ultrasound surveillance suggested. MRCP (12/30/16)---> 1. 4 mm common bile duct stone with mild prominence of the common bile duct measuring 7 mm in diameter. This is just out of the range of normal in terms of size for a patient of this age. 2. Acute cholecystitis. Abdomen/Pelvis CT (01/03/17)---- -> 1. Persistent gallbladder wall thickening with gallstones similar to December 28. Findings most characteristic of a mild cholecystitis. The common bile duct measures 10 mm. 2. Uterine fibroid. IgG 4 level 17.2. Was on Low fat diet, but lipase went up to 2671 today. Clinically, she is about the same, no significant abdominal pain, just some abdominal bloating and gas discomfort. She was made NPO and repeat imaging has been ordered. Meds reviewed to see if anything may be contributing. - Choledocholithiasis. ERCP with sphincterotomy (12/31/16) stone removal, bx antrum Found mild gastritis. - Cholecystitis. GS following, plan for outpatient cholecystectomy. PLAN: -Continue with clear liquid diet -CT of the abdomen was basically unremarkable - PPI - Simethicone -Monitor labs and if her lipase is stable or declining tomorrow patient may be discharged from a GI standpoint -Follow-up with GI post discharge Feng Zuleta MD Jan 09, 2017 00:15
[2017-01-09 01:04] VITALS: BP 114/74; PULSE 80; RESP 18; TEMP 96; O2SAT 95
[2017-01-09] MEDS: SIMETHICONE 125 MG CHEWABLE TAB PO SCH (05:05)
[2017-01-09 08:00] VITALS: BP 128/76; PULSE 73; RESP 16; TEMP 97.2; O2SAT 98
[2017-01-09] MEDS: SODIUM CHLORIDE 0.9% FLUSH 5 ML FLUSH IV SCH (09:00)
[2017-01-09] MEDS: CYANOCOBALAMIN 1,000 MCG TAB PO SCH (10:02)
[2017-01-09] MEDS: PANTOPRAZOLE SOD 40 MG DELAYED RELEASE TAB PO SCH (10:02)
[2017-01-09] MEDS: LORATADINE 10 MG TAB PO SCH (10:03)
--- NOTE | 2017-01-09 10:34 | HHI.DS ---
Discharge Summary Admission Date Dec 29, 2016 at 00:01 Admitting Diagnosis cholecystitis, pancreatitis. (1) Acute cholecystitis (2) Elevated lipase (3) GERD (gastroesophageal reflux disease) (4) Anxiety Consultants Dr. Feng Zuleta - GI Dr. Ant Cantrell - General Surgery Brief History 61-year-old female with know gallstones presents to the emergency Department with complaint of right upper quadrant abdominal pain since Wednesday night. She reports having heartburn and stomach pain with vomiting on Wednesday. Was seen in local [place] ER on Wednesday night and an ultrasound of the gallbladder was positive for gallstones. Lab work was relatively unremarkable at the time. She followed up with her primary care provider today, Dr. Ford, and was told to come to the emergency department for CT scan of the gallbladder after her PCP discussed case with surgeon, Dr. Miller. She denies fever, vomiting over last 3 days, but had some vomiting and low grade fever when symptoms first started last week. Denies chest pain, shortness breath. Denies change in urine or stool. She has had decreased appetite but has been drinking clear liquids throughout the weekend. History of arthritis, anxiety. It is noted that she started Mobic for her osteoA in early Dec, but stopped taking this med when her current GI symptoms started. ER eval revealed mildly elevated lipase and transaminases as well as findings c/ w acute cholecystitis on CT scan. Dr Miller requested admission to medical service with surgery consult. CBC/BMP: 01/08/17 0540 01/08/17 0540 Significant Findings Laboratory Tests Test 01/07/17 01/08/17 01/09/17 06:09 05:40 07:05 Lipase 2671 U/L 1726 U/L 1480 U/L (73-393) (73-393) (73-393) Monocytes (%) (Auto) 8.5 % (0.0-8.0) Eosinophils (%) (Auto) 4.5 % (0.0-4.0) Chloride Level 108 MEQ/L (98-107) Estimat Glomerular Filtration 78 ML/MIN (>89) Rate Aspartate Amino Transf 14 U/L (15-37) (AST/SGOT) Total Protein 6.1 GM/DL (6.4-8.2) Amylase Level 116 U/L (25-115) Imaging Last Impressions Abdomen/Pelvis CT 01/07/17 0000 Signed Impressions: Service Date/Time: January 19:53 - CONCLUSION: Cholelithiasis and large uterine fibroid. Jorge A Mackay MD GI Procedure 12/31/16 0000 Signed Impressions: Service Date/Time: December 16:33 - CONCLUSION: ERCP as above. Sam Estevez MD Cholangiopancreatography MRI 12/30/16 0000 Signed Impressions: Service Date/Time: Friday, December 30, 2016 15:57 - CONCLUSION: 1. 4 mm common bile duct stone with mild prominence of the common bile duct measuring 7 mm in diameter. This is just out of the range of normal in terms of size for a patient of this age. 2. Acute cholecystitis. Sam Esparza Jr., MD PE at Discharge General: NAD, AAOx3 Chest: CTA Cardiac: Regular Abd: +BS, soft ND/NT Ext: No edema Hospital Course Pt admitted with abdominal pain, nausea/vomiting. CT Scan abd/pelvis at admission indicated findings consistent with acute cholecystitis with sludge and stones in mary gallbladder lumen and uterine fibroid. She was also noted to have mild pancreatitis initially. Her Lipase continued to increase following admission. MRCP (12/30) noted 4mm CBD stone with mild prominence of the CBD. Pt was seen by GI and underwent ERCP with sphincterotomy with balloon sweep and stone removal on 12/31/[address] Warner. General Surgery was consulted but lap maxim was not recommended until 6 weeks post pancreatitis. Pts Lipase did not improve much post ERCP and repeat CT abd (01/04/17) was ordered which reveled probable mild cholecystitis. Pt was improving symptomatically as her abd pain, nausea and vomiting had resolved. Her labs started to trend down on and her diet was advanced to full liquids and then to solid foods but her Lipase began trending back up to 2671 on 01/07. She was made NPO again and started back on IVF on 01/[address] Abd/pelvis was ordered with pancreatic protocol. This showed cholelithiasis and large uterine fibroid otherwise negative. Repeat labs on 01/08/17 noted a decrease in her lipase to 1726 and her diet was advanced to clear liquids. Her labs on the day of discharge noted a lipase of 1480. GI has cleared the pt for discharge on 01/09/17 with outpt repeat labs next week and followup in 2 weeks. She will need to followup with General Surgery in 4 weeks Pt will need to followup with her PCP, Dr. Ford in 1 week. Pt Condition on Discharge: Stable Discharge Disposition: Discharge Home Discharge Instructions DIET: Follow Instructions for: Low Fat Diet Speech Therapy-Diet Recommends: Other Activities you can perform: Regular-No Restrictions Follow up Referrals: Gastroenterology - 2 Weeks with Feng Zuleta MD PCP Follow-up - [address] [facility] - 1 Month with Ant Cantrell MD Continued Medications: Alprazolam (Xanax) 0.25 Mg Tab 0.25 MG PO DAILY PRN ANXIETY Ref 0 TAB Cdexwdb-Guytvinzmwplo-Rykdxatg (Excedrin Migraine) 250-250-65 Mg Tab 2 TAB PO DAILY PRN MIGRAINE HEADACHE Ref 0 TAB Hydrocodone-Acetaminophen (Trimble) 5-325 mg Tab 1 TAB PO Q6H PRN PAIN Ref 0 TAB Loratadine (Loratadine) 10 Mg Tab 10 MG PO DAILY Allergy Management Ref 0 TAB Meloxicam (Meloxicam) 7.5 Mg Tab 7.5 MG PO BID PRN PAIN SCALE 1 TO 10 Ref 0 TAB Multiple Vitamins W/ Minerals (Multivitamin Adults) 1 Tab 1 TAB PO DAILY Nutritional Supplement Ref 0 TAB Ondansetron (Zofran) 4 Mg Tab 4 MG PO TID PRN NAUSEA OR VOMITING Ref 0 TAB Pantoprazole (Pantoprazole) 40 Mg Tab 40 MG PO DAILY Reflux #30 Ref 0 TAB Discontinued Medications: Calcium Carbonate-Vitamin D (Calcium 500/D) 500-200 Mg-Unit Tab 1 TAB PO DAILY TAB Cephalexin (Keflex) 500 Mg Cap 500 MG PO QID Infection Ref 0 CAP Cyanocobalamin (Vitamin B-12) 1,000 Mcg Tab 1000 MCG PO DAILY Nutritional Supplement #1 Ref 0 BOTTLE Fish Oil-Cholecalciferol (Fish Oil + D3) 1,200-1,000 Mg-Unit Cap 1 CAP PO DAILY Nutritional Supplement #30 Ref 0 CAP Additional Information Patient examined. Assessment and plan formulated with Tosha Valencia PA-C. I agree with the above. Tosha Valencia Jan 09, 2017 10:34 Mao Ma DO Jan 10, 2017 10:48
[2017-01-09 12:00] VITALS: BP 121/76; PULSE 79; RESP 18; TEMP 96.2; O2SAT 98
[2017-02-12] MEDS ORDERED: CYAN1TAB24 SL (13:20)
[2017-02-12] MEDS ORDERED: FISH1000 PO (13:20)
== END 2017-01-09 14:31 | disposition home or self-care (01) | DRG 444 ==
LOC: NEPE 14:16 → NEDA 12-29 00:01 → N06B 12-29 00:58
PROVIDERS: ADMIT Hospitalist; ATTEND Hospitalist
PROC: 0DB68ZX Excision of Stomach, Via Natural or Artificial Opening Endoscopic, Diagnostic (ICD-10-PCS; 2016-12-31)
PROC: 0FC98ZZ Extirpation of Matter from Common Bile Duct, Via Natural or Artificial Opening Endoscopic (ICD-10-PCS; principal; 2016-12-31 15:45)
DX: K80.62 Calculus of gallbladder and bile duct with acute cholecystitis without obstruction (principal); K85.10 Biliary acute pancreatitis without necrosis or infection; K21.9 Gastro-esophageal reflux disease without esophagitis; R73.03 Prediabetes; E53.8 Deficiency of other specified B group vitamins; K29.70 Gastritis, unspecified, without bleeding; D25.9 Leiomyoma of uterus, unspecified; M19.90 Unspecified osteoarthritis, unspecified site; F32.9 Major depressive disorder, single episode, unspecified; F41.9 Anxiety disorder, unspecified; Z23 Encounter for immunization; Z88.5 Allergy status to narcotic agent
CPT/HCPCS: 74177; 74181; 74330; 76377; 76937; 80053; 80076; 81001; 82150; 82565; 82784; 82787; 83690; 84520; 85025; 85610; 85730; 88305; 88312; 90732; 93005; 96361; 96374; 96375; C1769; J1956; J2060; J2270; J2405; J3010; J3480; J7030; Q9963; Q9967

== ENCOUNTER → 2017-02-15 | Day surgery (SDC) | payer OTHER ==
[~2017-02-15] VITALS: Ht 154.9 cm; Wt 63.5 kg
[~2017-02-15] MED LIST changes: +*morphine SULFATE 8 MG/ML PERIprocedure ONLY ONE; +ACETAMINOPHEN 1000 MG/100 ML VIAL IV ONE; -ALLE10TA5 PO; +BUPIVACAINE/EPINEPHRINE 0.25% 50 ML VIAL ONE; -CALCTAB80 PO; +CYAN1TAB24 SL; +DO NOT ADM ANY ANTICOAGULANT DRUGS PRN; +EXCETAB PO; +FAMOTIDINE 20 MG/2 ML VIAL ONE; +FISH1000 PO; +LACTATED RINGER'S 1000 ML INJ 1,000 ML IV ONE; +LACTATED RINGER'S 1000 ML INJ 1,000 ML ONE; +LORA10TA PO; +MELO7.5T4 PO; +MIDAZOLAM HCL 2 MG/2 ML VIAL ONE; +MORPHINE SULFATE 4 MG/ML INJ IV PRN; -MULT-65 PO; +MULT1TAB84 PO; +NEOSTIGMINE 3 MG/3 ML SYR IV ONE; +NORC5TAB PO; -OMEG5CAP PO; +ONDANSETRON HCL 4 MG/2 ML VIAL IV PRN; +ONDANSETRON HCL 4 MG/2 ML VIAL IV PUSH ONE; +ONDANSETRON HCL 4 MG/2 ML VIAL ONE; +PANT40TA3 PO; +PROPOFOL 200 MG/20 ML AMP IV ONE; -PROT40TA PO; -RED600TA PO; -ROBA750T3 PO; -VITA10002 SL; -VITA250T26 PO; +ZOFR4TAB PO; +ceFAZolin 2 GM PREMIX 50 ML ONE; +fentaNYL CITRATE 250 MCG/5 ML AMP ONE; +metroNIDAZOLE 500 MG INJ 100 ML IV ONE
[2017-02-15 07:47] VITALS: BP 121/64; PULSE 58; RESP 20; TEMP 98.4; O2SAT 97
[2017-02-15 12:05] VITALS: BP 131/60; PULSE 58; RESP 18; TEMP 97.8; O2SAT 96
--- NOTE | 2017-02-22 10:33 | MP ---
cc: ANT CANTRELL DATE OF 1955 DATE OF OPERATION 02/15/2017 PREOPERATIVE DIAGNOSIS Cholelithiasis with recent gallstone pancreatitis. POSTOPERATIVE DIAGNOSIS Cholelithiasis with recent gallstone pancreatitis. PROCEDURE Laparoscopic cholecystectomy SURGEON Ant Cantrell MD ANESTHESIA General endotracheal anesthesia. ESTIMATED BLOOD LOSS Scant. FINDINGS The gallbladder filled with stones. SPECIMEN Gallbladder with stones. COMPLICATIONS None. OPERATION The patient was brought to the operating room and placed on the operating table in a supine position. A bilateral sequential inflation device was placed on the lower extremities. General anesthesia was instituted, antibiotics initiated. The abdomen was prepped and draped sterilely. A point in the periumbilical region was anesthetized with 0.25% Marcaine with epinephrine. A skin incision was made. A 5 mm Optiview port was placed under direct vision, a pneumoperitoneum created. Under direct vision a 12 mm subxiphoid and two 5 mm right upper quadrant ports were placed. Prior to placement of all ports the skin and peritoneum were anesthetized with 0.25% Marcaine with epinephrine. The patient was placed in reverse Trendelenburg position, right side up. The gallbladder was retracted into the upper abdomen. The infundibulum was retracted. Calot's triangle was opened. The hepatoduodenal ligament was incised. The cystic artery was identified. It was circumferentially dissected with the Harmonic scalpel and then divided with the Harmonic scalpel. The cystic duct was identified, circumferentially dissected and divided with the Harmonic scalpel. The gallbladder was removed from the liver bed using the Harmonic scalpel. It was retrieved from the peritoneal cavity in an Endopouch through the 12 mm port site. The operative site was inspected. Hemostasis was present. There was no evidence of bile leak. CO2 was released. All ports were removed. All skin incisions were closed with 4-0 Monocryl. The abdominal wall was cleaned and a sterile dressing placed. The patient was awakened and taken to the recovery room. Ant Cantrell MD JS/SSB /10:19 AM /10:29 AM
== END | disposition home or self-care (01) ==
LOC: HSDC 06:02
PROVIDERS: ATTEND Surgery
DX: K80.00 Calculus of gallbladder with acute cholecystitis without obstruction (principal); K85.10 Biliary acute pancreatitis without necrosis or infection
CPT/HCPCS: 00790; 47562; 88304; J0131; J0690; J2250; J2270; J2405; J2710; J3010; J7120